=== PATIENT | female | born 1930 | race Caucasian/White ===

== ENCOUNTER 2016-09-25 07:30 | Inpatient (IN) | payer MEDICARE ==
--- NOTE | 2016-09-21 15:32 | HP ---
PREOPERATIVE HISTORY AND PHYSICAL: DATE OF SURGERY: 09/25/16 DATE OF OFFICE VISIT: 09/19/16 ATTENDING SURGEON: Dr. Goodrich (DICTATED BY JONATHON LANE) PROCEDURE: Left total hip replacement. CHIEF COMPLAINT: Left hip pain. HISTORY OF PRESENT ILLNESS: Lourdes is an 86-year-old female who presented to the clinic for left hip pain after mowing an incline and moving a washer on 01/06. After that time, she had difficulty walking for 3 days. She has had continued pain in her hip and groin region due to a left femoral neck fracture. She has failed conservative measures and has therefore agreed to undergo a left total hip replacement with Dr. Goodrich on 09/25/16. PAST MEDICAL HISTORY: 1. Lyme disease. 2. Chronic back pain. 3. Osteoarthritis. 4. Seasonal allergies. 5. Bladder cancer. PAST SURGICAL HISTORY: 1. Bladder suspension. 2. Bladder cancer resection. 3. Right total knee replacement. Denies prior complications with anesthesia. MEDICATIONS: 1. Zolpidem tartrate 5 mg 1 tab at bedtime as needed for sleep. 2. Cod liver oil with vitamins A and D 1 gel tab daily. 3. Probiotics Blend 1 by mouth everyday. 4. Nasacort AQ 55 mcg/HCT 2 sprays in each nostril everyday. 5. Betamethasone dipropionate 0.05% apply twice a day to area of itching. 6. Naproxen 400 mg p.o. daily. 7. Aspirin 325 mg take one by mouth everyday. 8. Lidocaine 5% apply to the painful areas as directed. 9. Fentanyl transdermal patch. ALLERGIES: PENICILLIN, SULFA, CEPHALOSPORIN, VALTREX, MORPHINE, DOXYCYCLINE, and QUETIAPINE. FAMILY HISTORY: Positive for stroke. Denies family history of DVT or PE. SOCIAL HISTORY: The patient lives alone. She is a former smoker. She quit 27 years ago. She denies alcohol or illegal drug use. REVIEW OF SYSTEMS: General: Negative for fever, chills, or night sweats. No known anesthesia problems. HEENT: Negative for headache, lightheadedness, or syncopal episodes. Integumentary: Negative for abrasions, lesions, or open wounds. Cardiothoracic: Negative for chest pain, palpitations, or edema. Negative for hypertension. Pulmonary: Negative for shortness of breath with exertion, chronic cough, or COPD. GI: Negative for nausea, vomiting, diarrhea , constipation, or GERD. : Positive for history of bladder cancer. Denies nocturia, urinary frequency, urinary urgency or kidney problems. Musculoskeletal: Positive for current complaint. Neuro: Denies numbness and tingling, history of seizure, stroke, or epilepsy. Endocrine: Negative for diabetes or thyroid issues. Heme: Negative for easy bruising, anemia, excessive bleeding, nor history of DVT or PE. Infectious Disease: Negative for history of MRSA. PHYSICAL EXAM: GENERAL: Well-developed, well-nourished 86-year-old female, in no acute distress. Alert and oriented x3. Appropriate mood and affect. VITAL SIGNS: Height 59, weight 117. Pulse 84, blood pressure 158/82, respiratory rate 18, temperature 97.5. BMI 23.6. HEENT: Normocephalic, atraumatic. PERRLA. Throat clear. NECK: Supple. PULMONARY: Lungs are clear to auscultation bilaterally. No wheezing, rhonchi, or rales. CARDIO: Regular rate and rhythm. S1, S2. No murmurs, gallops, or rubs. No edema. No carotid bruits. ABDOMEN: Positive bowel sounds. Soft, nontender. MUSCULOSKELETAL: Antalgic gait favoring the left side. Hip is nontender anteriorly. No masses. Mild tenderness to palpation over the lateral hip. Unable to perform a leg raise. Full range of motion of the knee, +2 dorsalis pedis and posterior tibialis pulse. Sensation intact to light touch distally. NEURO: Alert and oriented x3. Cranial nerves grossly intact. Sensation intact to light touch. DIAGNOSTIC STUDIES/LAB DATA: Multiple view x-rays of the left hip reveal a left femoral neck fracture that is displaced. IMPRESSION: Left femoral neck fracture. PLAN: The patient is scheduled to undergo a left total hip replacement with Dr. Goodrich on 09/25/16 for treatment of a left femoral neck fracture. Indications and risks and complications of the surgery were discussed with the patient. Percocet will be used for postoperative pain management and aspirin for DVT prophylaxis. She will follow up one month postop for followup and suture removal. JONATHON LANE [id number]/[facility] #: [id number] MTDDon
[~2016-09-25 07:30] MED LIST: Famotidine IV* 10 MG/ML 2 ML (20 mg) IV ONE; Metoclopramide TAB* 10 MG PO ONE
[2016-09-25] MEDS ORDERED: Propofol* 10 MG/ML 20 ML BTL IV PUSH ONE ×3 (11:44→12:02)
[2016-09-25] MEDS ORDERED: Bupivacaine 0.5% SDV PF* 30 ML VIAL ONE ×2 (11:50→12:03)
[2016-09-25] MEDS ORDERED: fentaNYL* 50 MCG/ML 2 ML VIAL (100 MCG VIAL) ONE (11:50)
[2016-09-25] MEDS ORDERED: Ondansetron INJ* 2 MG/ML VIAL ONE (11:50)
[2016-09-25] MEDS ORDERED: KETAMINE HCL* 50 MG/ML 10 ML VIAL ONE (11:50)
[2016-09-25] MEDS ORDERED: Midazolam* 1 MG/ML 5 ML VIAL (5 MG) ONE (11:50)
[2016-09-25] MEDS ORDERED: Lidocaine 2% PF * 5 ML VIAL ONE (11:50)
[2016-09-25] MEDS ORDERED: Dexamethasone IV* 4 MG/ML 1 ML (4 MG) ONE (11:50)
[2016-09-25] MEDS ORDERED: Ketorolac INJ* 30 MG/ML 1 ML VIAL ONE (11:50)
[2016-09-25] MEDS ORDERED: Phenylephrine INJ* 50 MG in NS 0.9% 250 ML* 245 ML IV PRN (12:32)
[2016-09-25] MEDS ORDERED: Ondansetron INJ* 2 MG/ML VIAL IV PRN ×2 (12:32→12:33)
[2016-09-25] MEDS ORDERED: fentaNYL* 50 MCG/ML 2 ML VIAL (100 MCG VIAL) IV PRN (12:32)
[2016-09-25] MEDS ORDERED: Naloxone* 0.4 MG/ML 1 ML VIAL IV PRN (12:33)
[2016-09-25] MEDS ORDERED: diPHENhydraMINE IV* 50 MG/ML 1 ml VIAL (BENADRYL) IV PRN (12:33)
[2016-09-25] MEDS ORDERED: EPHEDrine (Pressors)* 50 MG/ML VIAL IV PUSH PRN (12:33)
[2016-09-25] MEDS ORDERED: oxyCODONE/Acetamin 5/325 MG* TAB PO PRN (12:33)
[2016-09-25] MEDS ORDERED: Lactated Ringers 500 ml BAG* 500 ML IV PRN (12:33)
[2016-09-25] MEDS ORDERED: EPHEDrine (Pressors)* 50 MG/ML VIAL ONE (12:38)
[2016-09-25] MEDS ORDERED: HYDROmorphone* 1 MG/ML 1 ML SYR IV SLOW PU PRN (13:10)
[2016-09-25] MEDS ORDERED: oxyCODONE TAB* 5 MG TAB PO PRN (13:10)
[2016-09-25] MEDS ORDERED: Temazepam CAP* 15 MG PO PRN (13:10)
[2016-09-25] MEDS ORDERED: Zolpidem TAB* 5 MG PO PRN (13:21)
[2016-09-25] MEDS ORDERED: Senna TAB PO PRN (13:21)
--- NOTE | 2016-09-25 13:56 | RAD ---
Indication: Postop LEFT total hip replacement. Comparison: September 19, 2016 Technique: AP pelvis and proximal femurs 1233 hours Report: Noncemented LEFT total hip prosthesis in place with normal alignment in the AP projection with full alignment assessment requiring an orthogonal view. No periprosthetic fracture evident. Surrounding soft tissue swelling and subcutaneous emphysema. Overlying cutaneous saumya. Bilateral pelvic sidewall surgical clips. Lumbar sacral spine degenerative spondylosis and facet joint osteoarthritis. IMPRESSION: Unremarkable immediate postop appearance of the LEFT total hip prosthesis.
[2016-09-25] MEDS ORDERED: fentaNYL PATCH 12 MCG/HR TRANSDERM SCH (14:00)
--- NOTE | 2016-09-25 15:21 | CONS ---
CC: Dr. Alcaraz; Dr. Oshea; Dr. Hernandez; Dr. oGodrich * CONSULTATION REPORT: DATE OF CONSULT: 09/25/16 PRIMARY CARE PROVIDER: Dr. Alcaraz. CHIEF COMPLAINT: Status post left hip surgery. HISTORY OF PRESENT ILLNESS: Ms. Coronel is an 86-year-old female with history of left femoral neck fracture that was noted incidentally. The patient has had problems with back pain and hip pain, but she denies any trauma. She was diagnosed by Dr. Goodrich with left hip fracture and today is status post left total hip replacement. Dr. Goodrich requested medicine service to see this patient in evaluation of medical management of this postoperative patient. PAST MEDICAL HISTORY: 1. History of bladder cancer, status post partial bladder resection. 2. Right knee surgery in the past performed by Dr. Goodrich in 2011. 3. History of cardiac stress test noted in July 2016 which showed EF of 60% and low risk. 4. History of questionable hypertension, although never treated. 5. History of chronic back pain. 6. History of osteoarthritis. MEDICATIONS AT HOME: Include: 1. Fentanyl patch 12 mcg every 72 hours. 2. Benadryl 25 mg at bedtime p.r.n. 3. Ambien 5 mg at bedtime p.r.n. 4. Senna 2 tablets daily p.r.n. 5. Probiotic 1 tablet daily. 6. Naproxen sodium 440 mg daily p.r.n. 7. Multivitamin 1 tablet daily. 8. Aspirin 325 mg daily. ALLERGIES: Include SEROQUEL causes rapid heart rate and uncontrollable limb movements. IBUPROFEN and TRAMADOL cause stomach upset. CEPHALOSPORINS cause hives. DOXYCYCLINE, vomiting. LYRICA cause for the patient to be sedated. MORPHINE causes vomiting. PENICILLIN causes hives. SULFA DRUGS, VALTREX and LATEX are also on the list of the patient's allergies. FAMILY HISTORY: Positive for father with CVA. Mother with genital cancer. SOCIAL HISTORY: The patient lives alone. Her surrogates are her both sons. She smoked cigarettes in her 20s. She denies any alcohol or drug use. REVIEW OF SYSTEMS: The patient is currently under epidural anesthesia. She denies any pain. She in fact feels very well. She is on 4 L of oxygen postoperatively, but denies shortness of breath or chest pain. All the remaining 14 systems were reviewed with the patient and were otherwise negative. PHYSICAL EXAM: Blood pressure of 149/79, heart rate of 68 and regular, respiratory rate 16, oxygen saturation 100% on 2 L of oxygen nasal cannula, and temperature of 97.2. General: The patient is a very pleasant 86-year-old female who is in no acute distress. Alert, awake, and oriented x3. HEENT: Atraumatic, normocephalic. Eyes: Pupils equal, round, reactive to light and accommodation. Oropharynx clear. Mucosa moist. Neck: Supple. No JVD, no bruit bilaterally. Cardiovascular: Regular rate and rhythm with 2/6 systolic ejection murmur noted on auscultation of the right upper sternal border. Respiratory: Clear to auscultation bilaterally. Abdomen: Soft, nontender. Bowel sounds present in all 4 quadrants. Extremities: There is no edema. Pulses are +2 bilaterally. No clubbing or cyanosis. On evaluation of the skin , left postoperative hip was evaluated. The patient has the postoperative incision covered with dressings that were not removed. Neuro Evaluation: Speech clear. Cranial nerves II through XII grossly intact. Motor strength is 5/5 bilaterally. DIAGNOSTIC STUDIES/LAB DATA: Last obtained on 09/20/16 showed white blood cell count of 4.0, hemoglobin 12.6, hematocrit of 38, and platelets of 255. Sodium was 136, potassium 4.3, chloride 101, carbon dioxide 28, BUN 14, creatinine 0.74. Liver function tests were unremarkable at that point. ASSESSMENT AND PLAN: Ms. Coronel is an 86-year-old female with history of osteoarthritis who was noted incidentally that she has a fracture of the left femoral neck. Currently, she is status post left hip surgery performed by Dr. Goodrich. Apart from history of osteoarthritis and chronic pain, she has no other medical issues ongoing. I agree with following basic metabolic panel and hemoglobin and hematocrit postoperatively. I also agree with the pain management postoperatively. At this point, Medicine is going to sign off the patient's care and will be available p.r.n. TIME SPENT: Approximately 55 minutes was spent on consultation of this patient , more than half that time was spent [id number] with the patient doing the interview and physical exam. [id number]/[facility] #: [id number] [facility]
[2016-09-25] MEDS: OBEPIDURAL* 250 ML EPIDURAL SCH (15:54)
[2016-09-25] MEDS ORDERED: Ropivacaine (OR use only) 2 MG/ML 1 ML ONE (16:02)
[2016-09-25] MEDS ORDERED: fentaNYL PATCH 12 MCG/HR ONE (17:36)
[2016-09-25] MEDS: fentaNYL Patch Check Q Shift 1 NOTE SCH (19:12)
[2016-09-25] MEDS: Ferrous Sulfate TAB* 325 MG PO SCH (20:02)
[2016-09-25] MEDS: Docusate CAP* 100 MG PO SCH (20:02)
[2016-09-25] MEDS: Clindamycin 600 MG IVPREMIX(* 600 MG/50 ML SDV IV SCH (20:02)
[2016-09-25] MEDS: oxyCODONE/Acetamin 5/325 MG* TAB PO PRN (20:26)
--- NOTE | 2016-09-25 23:07 | OP ---
CC: Dr. Alcaraz* DATE OF OPERATION: 09/25/16 - ROOM #347 DATE OF : 34 SURGICAL CARE: Left hip. SURGEON: Dr. Salomon Goodrich. ASSISTANTS: JONATHON Ramirez, kindergarten instructional assistant; and JONATHON Chen Student. ANESTHESIOLOGIST: Dr. Carlito Roblero. ANESTHESIA: Spinal epidural. PRE-OP DIAGNOSIS: Displaced left femoral neck fracture. POST-OP DIAGNOSIS: Displaced left femoral neck fracture. OPERATIVE PROCEDURE: Left total hip replacement. COMPLICATIONS: There were no complications. DRAINS: There were no drains. ESTIMATED BLOOD LOSS: 200 mL. REPLACEMENT: Crystalloid fluid. OPERATIVE INDICATIONS: The displaced femoral neck fracture. DESCRIPTION OF PROCEDURE: The patient was brought to the operating room and placed on the operating table in a supine position following the administration of the anesthetic. She was returned to the supine position. A Garcias catheter was inserted. Then she was then placed in the right lateral position with an axillary roll in the down side, right leg checked to see if there was no pressure on the peroneal nerve at the fibular head and neck. The pelvis was secured over the ASIS and the sacrum with the hip positioner. The left groin was sealed off. The left hip was given a preliminary chlorhexidine prep and then a formal ChloraPrep from the hip to the foot. After prepping, draping and sealing off, we did our universal protocol time-out confirming Lourdes Coronel and plan for left total hip replacement. We all agreed and we proceeded out. The skin incision went from the greater trochanter distally for an inch and a half and curved proximally and posteriorly for 2.5 to 3 inches. The skin and subcu divided down to the deep fascia. Hemostasis was checked and achieved throughout the case utilizing electrocautery. Charnley retractor was inserted. The trochanteric bursa was traversed. A careful posterior approach to the hip was done preserving the gluteus medius and minimus. The piriforms and conjoint tendon were released from the piriformis fossa insertions. Each was marked with a separate #2 Surgidac suture and this stitch also included the underlying capsular flap. Careful hemostasis was achieved during this posterior approach. The femoral head could be seen on centimeter medially displaced with a stepoff on the medial aspect of the neck and the subcapital region. The hip was dislocated without difficulty. The neck was marked with the cutting guide for the M/L taper and the head and neck then carefully removed. The neck was divided about a half a fingerbreadth proximal to the lesser trochanter. The acetabulum was in good condition. The retraction there was sharp, Hohmann anteriorly and posteriorly, blunt Hohmann superiorly and inferiorly. The remainder of the labrum removed posteriorly and superiorly. The soft tissues in the medial acetabulum were excised and reaming was done 44 through 48. At 48, we had nice bleeding subchondral and cancellous bone. A 48 cluster hole Continuum cup was impacted into position in 45 degrees of abduction and 20 degrees of anteversion with nice tight fit. The acetabulum was cleaned with saline. A screw was placed superiorly and then an elevated liner was placed posteriorly. On the femoral side, we used a canal finder at the box. The trochanteric reamer broaching was done 5 through 11. The 11 broach was utilized for a trial reduction with a -3/5 32 mm head and this had a nice fit and negative push, pull in extension. No tendency towards levering with IR and ER in extension. Flexion of 90 degrees , allowed adduction and internal rotation approaching 30 to 40 degrees prior to dislocation. A size 11 standard M/L taper stem was impacted into position in 15 to 20 degrees of anteversion. The trunnion was cleaned and a -3/5 32 mm cobalt chrome head was impacted into position. The hip was reduced carefully. Hemostasis checked and achieved utilizing electrocautery during closure. We irrigated several times with saline. The piriformis and conjoint tendon reapproximated through 2 drill holes for the posterior superior greater trochanter. Fascia fortino closed with interrupted #1 Polysorb in figure-of-8 fashion and same of the fascia of the gluteus alxe where we used 0 Polysorb sutures. On the deep and superficial subcu, we used 0 Polysorb and then 2-0 Polysorb and then saumya on the skin. I did not think drains were necessary. The skin was washed and dried and covered with Betadine soaked release followed by sterile gauze, may be knee pattern and paper tape. The patient was returned to the hospital bed into brought into the recovery room in stable and satisfactory condition having tolerated the procedure very well. [id number]/[facility] #: [id number] [facility]
[2016-09-26] MEDS: oxyCODONE/Acetamin 5/325 MG* TAB PO PRN ×2 (00:26→05:16)
[2016-09-26] MEDS: Clindamycin 600 MG IVPREMIX(* 600 MG/50 ML SDV IV SCH ×2 (03:53→12:12)
[2016-09-26] MEDS ORDERED: Ondansetron INJ* 2 MG/ML VIAL IV PRN (06:00)
[2016-09-26] MEDS ORDERED: Naloxone* 0.4 MG/ML 1 ML VIAL IV PRN (06:00)
[2016-09-26] MEDS ORDERED: diPHENhydraMINE IV* 50 MG/ML 1 ml VIAL (BENADRYL) IV PRN (06:00)
[2016-09-26] MEDS ORDERED: oxyCODONE/Acetamin 5/325 MG* TAB PO PRN ×2 (06:00)
[2016-09-26 06:32] LABS: Hematocrit 26 % (35-47); Hemoglobin 8.8 g/dl (12.0-16.0)
[2016-09-26] MEDS: fentaNYL Patch Check Q Shift 1 NOTE SCH ×2 (06:32→18:53)
[2016-09-26 06:50] LABS: Calcium 8.9 mg/dL (8.6-10.3); EGFR African American 113.7 (>60); EGFR Non-African American 88.4 (>60); Potassium 4.1 mmol/L (3.5-5.0)
[2016-09-26] MEDS: Docusate CAP* 100 MG PO SCH ×2 (08:08→21:01)
[2016-09-26] MEDS: Ferrous Sulfate TAB* 325 MG PO SCH ×2 (08:08→21:00)
[2016-09-26] MEDS: Aspirin TAB* 325 MG PO SCH (08:08)
[2016-09-26] MEDS: Vitamin THERAPEUTIC TAB PO SCH (08:09)
[2016-09-26] MEDS: Acetaminophen TAB* 325 MG PO PRN ×3 (12:32→21:01)
[2016-09-26] MEDS: OBEPIDURAL* 250 ML EPIDURAL SCH (12:56)
[2016-09-27] MEDS: Acetaminophen TAB* 325 MG PO PRN ×2 (03:19→09:02)
[2016-09-27] MEDS: fentaNYL Patch Check Q Shift 1 NOTE SCH (06:38)
[2016-09-27 07:36] LABS: Hematocrit 31 % (35-47); Hemoglobin 10.8 g/dl (12.0-16.0)
[2016-09-27] MEDS: Ferrous Sulfate TAB* 325 MG PO SCH (09:02)
[2016-09-27] MEDS: Docusate CAP* 100 MG PO SCH (09:02)
[2016-09-27] MEDS: Vitamin THERAPEUTIC TAB PO SCH (09:02)
[2016-09-27] MEDS: Aspirin TAB* 325 MG PO SCH (09:02)
--- NOTE | 2016-09-27 09:09 | PN ---
Progress Note - Progress Note SOAP: Subjective: []Patient seen OOB in chair, fully dressed and ready to go home. Doing well, minimal pain. Denies nausea, dizziness, SOB, CP. Objective: [] Vital Signs Temp 98.1 F 09/27/16 07:28 Pulse 80 09/27/16 07:28 Resp 16 09/27/16 08:00 BP 143/56 09/27/16 07:28 Pulse Ox 100 09/27/16 08:00 Intake & Output 09/26/16 09/27/16 09/27/16 18:59 06:59 18:59 Intake Total 821 720 200 Output Total 550 1400 300 Balance 271 -680 -100 Intake: IV Fluids 221 0 ABX - CLINDAMYCIN 0 LR 221 0 IVPB 60 ABX - CLINDAMYCIN 60 Oral 225 720 200 Packed Cells 315 Output: Urine 250 1400 300 Garcias 300 Other: # Bowel Movements 0 # Voids 2 Laboratory Results - last 24 hr 09/26/16 09/27/16 05:38 06:34 Hgb 10.8 L Hct 31 L Blood Type O Positive Antibody Screen Negative Crossmatch See Detail Left hip dressing taken down, moderate old bloody drainage, no active bleeding, incision benign moderate ecchymosis posterior to incision calf non tender and soft +DF/PF neuro intact Assessment: []s/p Left total hip arthroplasty POD #2 Plan: []Continue Ecotrin 325 mg po daily Tylenol for pain at home Follow up in 4-[address] Goodrich
[2016-09-27 11:40] VITALS: BP 153/68
[2016-09-27] MEDS: OBEPIDURAL* 250 ML EPIDURAL SCH (12:02)
--- NOTE | 2016-09-28 00:34 | DS ---
DISCHARGE SUMMARY: DATE OF ADMISSION: 09/25/16 DATE OF DISCHARGE: 09/27/16 ATTENDING PHYSICIAN: Dr. Salomon Goodrich. (DICTATED BY JONATHON PEREIRA) ADMISSION DIAGNOSIS: Left displaced femoral neck fracture. DISCHARGE DIAGNOSIS: Left displaced femoral neck fracture. SURGERY PERFORMED: Left total hip arthroplasty. HOSPITAL COURSE: The patient is an 86-year-old female, who injured her left hip after mowing her grass on an incline and subsequently moving a washing machine on 08/28/16. After these 2 episodes, she had increased pain and difficulty bearing weight for roughly 3 days. She presented to the office where x-rays revealed a femoral neck fracture. It was recommended that she undergo total hip replacement as she failed conservative management. She elected to proceed and was taken to the operating room under the care of Dr. Salomon Goodrich on the date of 09/25/16 for the aforementioned procedure. She tolerated the procedure well and left the operating room in stable condition. Postoperatively, on day 1, her hematocrit was 26, her hemoglobin 8.8. She was transfused with a unit of packed red blood cells and her hemoglobin and hematocrit rebounded to 10.8 and 31. She had no difficulty postoperatively otherwise. She progressed exceptionally well with her physical therapy and occupational therapy goals bearing weight as tolerated on the left lower extremity. It was felt that she was orthopedically and medically stable for discharge to home on 09/27/16. The patient was considered for rehab, but the patient refused rehab and elected to be discharged home. CONDITION ON DISCHARGE: She is afebrile. Her vital signs are stable. Her left hip dressing was changed. Moderate old bloody drainage noted on her dressings. Soapy water cleansing with application of iodine-soaked Telfa, 4x4s, and tape was applied to the left hip wound today. Her calf is soft and nontender. She has active dorsiflexion and plantar flexion of her left foot. Her sensation and circulation are intact distally. PLAN: Discharge to home, bearing weight as tolerated in the left lower extremity. She will keep a light dressing with antibiotic ointment on her left hip. She will continue with aspirin 325 mg p.o. daily for DVT prophylaxis. She wears a fentanyl patch 12 mcg q.72 hours for her chronic back pain, and does not want to take additional narcotic pain medications. She was instructed to take Extra Strength Tylenol as needed in addition to her Duragesic patch. I recommend she refrain from the Naprosyn while she is on the aspirin to prevent GI complication. She understands. We recommend a followup with Dr. Goodrich in the office in roughly 4 to 6 weeks. She will have visiting home nurse services check her incision and remove her saumya in roughly 10 to 12 days. If she has any problems with increased hip pain, swelling, drainage, calf pain or swelling , shortness of breath, chest pain, excessive constipation, the office will be contacted prior to her scheduled followup with Dr. Goodrich. JONATHON PEREIRA [id number]/[facility] #: [id number] MTDDon
== END 2016-09-27 13:15 | disposition home health service (06) | DRG 470 ==
LOC: AA 07:48 → SSU 13:10
PROVIDERS: ADMIT Orthopaedic Surgery; ATTEND Orthopaedic Surgery
PROC: 0SRB02Z Replacement of Left Hip Joint with Metal on Polyethylene Synthetic Substitute, Open Approach (ICD-10-PCS; 2016-09-25)
PROC: 30233N1 Transfusion of Nonautologous Red Blood Cells into Peripheral Vein, Percutaneous Approach (ICD-10-PCS; principal; 2016-09-25 09:30)
DX: S72.002A Fracture of unspecified part of neck of left femur, initial encounter for closed fracture (principal); I10 Essential (primary) hypertension; D62 Acute posthemorrhagic anemia; G89.29 Other chronic pain; M54.9 Dorsalgia, unspecified; Z85.51 Personal history of malignant neoplasm of bladder; M47.892 Other spondylosis, cervical region; Z96.651 Presence of right artificial knee joint; Z98.42 Cataract extraction status, left eye; Z98.41 Cataract extraction status, right eye; Z88.8 Allergy status to other drugs, medicaments and biological substances; Z88.1 Allergy status to other antibiotic agents; Z88.0 Allergy status to penicillin; Z88.2 Allergy status to sulfonamides; Z88.5 Allergy status to narcotic agent; M19.90 Unspecified osteoarthritis, unspecified site; Z80.49 Family history of malignant neoplasm of other genital organs; Z82.3 Family history of stroke; Z87.891 Personal history of nicotine dependence; W30.1XXA Contact with power take-off devices (PTO), initial encounter; Y93.H2 Activity, gardening and landscaping; Y92.9 Unspecified place or not applicable
CPT/HCPCS: 36415; 72170; 80048; 85014; 85018; 86850; 86900; 86901; 86922; A9270-GY; C1713; C1776; J1100; J1885; J2250; J2405; J2704; J2795; J3010; P9040

== ENCOUNTER 2019-07-31 19:40 | Emergency (ER) | payer MEDICARE ==
[2019-07-31] MEDS ORDERED: NS 0.9% 1000 ML** 1,000 ML IV ONE (20:03)
[2019-07-31] MEDS ORDERED: Ondansetron INJ* 2 MG/ML VIAL IV ONE (20:03)
--- NOTE | 2019-07-31 20:05 | ED ---
Abdominal Pain/Female - HPI Summary HPI Summary: Patient complains of chronic low back pain and no one said diffuse abdominal pain and lack of bowel movement 5 days. Abdominal pain described as progressive, constant, well-nourished 11/29, currently 09/29. Tolerating fluids, but nausea and vomiting with eating. Patient has attempted suppositories daily and mag citrate today for constipation with no relief. Denies fever, cough, sore throat, CP, SOB, diarrhea, change in urine, vaginal symptoms. Medical history is diverticulitis. Abdominal surgical history is none. - History of Current Complaint Chief Complaint: EDAbdPain Stated Complaint: ABDOMINAL KIRTI PER EMT Time Seen by Provider: 07/31/19 19:52 Hx Obtained From: Patient Onset/Duration: Gradual Onset, Lasting Days Timing: Constant Severity Currently: Moderate Pain Intensity: 6 Pain Scale Used: 0-10 Numeric Location: Diffuse Radiates to: Back Character: Dull Aggravating Factor(s): Food Associated Signs and Symptoms: Positive: Back Pain, Constipation, Nausea, Vomiting Allergies/Adverse Reactions: Allergies Allergy/AdvReac Type Severity Reaction Status Date / Time Cephalosporins Allergy Hives Verified 07/31/19 19:49 doxycycline Allergy Vomiting Verified 07/31/19 19:49 fentanyl Allergy Itching Verified 07/31/19 19:49 ibuprofen Allergy Unknown Verified 07/31/19 19:49 Reaction Details morphine Allergy Itching Verified 07/31/19 19:49 Penicillins Allergy Hives Verified 07/31/19 19:49 quetiapine [From Seroquel] Allergy Tachycardia Verified 07/31/19 19:49 Sulfa (Sulfonamide Allergy Rash Verified 07/31/19 19:49 Antibiotics) tramadol Allergy increased Verified 07/31/19 19:49 BP valacyclovir [From Valtrex] Allergy Rash Verified 07/31/19 19:49 LATEX Allergy See Comment Uncoded 07/31/19 19:49 Home Medications: Home Medications Lactobacillus Acidophilus/Fos [Acidophilus Probiotic Tablet] 1 tab PO DAILY [History Confirmed 07/31/19] Zolpidem TAB* [Ambien*] 10 mg PO BEDTIME PRN 02/15/16 [History Confirmed ] Acetaminophen TAB* [Tylenol TAB*] 650 mg PO Q4H PRN #0 tab 09/27/16 [Rx Confirmed 07/31/19] oxyCODONE TAB* [Roxycodone TAB 5 mg*] 5 mg PO BID PRN 12/10/16 [History Confirmed 07/31/19] Multivit-Min/Iron Fum/Folic AC [Cblhw-Fsnpdpy-Jmuvvhyz Tablet] 1 each PO .TWICE WEEKLY 06/20/17 [History Confirmed 07/31/19] Naproxen Sodium [Naproxen 220 mg] 220 mg PO BID PRN 08/16/17 [History Confirmed 07/31/19] Losartan TAB* [Cozaar TAB*] 25 mg PO DAILY 11/04/17 [History Confirmed 07/31/19] Pregabalin 100 mg CAP (*) [Lyrica CAP(*)] 100 mg PO BID 11/04/18 [History Confirmed 07/31/19] fentaNYL PATCH 12 MCG/HR * [Duragesic Patch 12 Mcg/Hr *] 12 mcg TRANSDERM Q72H 06/15/19 [History Confirmed 07/31/19] PMH/Surg Hx/FS Hx/Imm Hx Endocrine/Hematology History: Denies: Hx Diabetes, Hx Systemic Lupus Erythematosus Cardiovascular History: Reports: Hx Hypertension, Hx Rheumatic Fever - A CHILD AGE APPROX 12 OR 14, Other Cardiovascular Problems/Disorders - LLE lymphedema Denies: Hx Congestive Heart Failure, Hx Pacemaker/ICD Respiratory History: Reports: Hx Seasonal Allergies Denies: Hx Chronic Obstructive Pulmonary Disease (COPD) GI History: Reports: Hx Gastrointestinal Bleed, Other GI Disorders - CONSTIPATION R/T PAIN MEDS History: Reports: Hx Kidney Infection - HX OF, Other Problems/Disorders - bladder cancer August 2010 Denies: Hx Dialysis, Hx Renal Disease Musculoskeletal History: Reports: Hx Arthritis, Hx Back Problems, Hx Scoliosis, Hx Tendonitis, Other Musculoskeletal History - arthritis Denies: Hx Rheumatoid Arthritis Sensory History: Reports: Hx Cataracts - BILAT, Hx Contacts or Glasses Denies: Hx Hearing Aid Opthamlomology History: Reports: Hx Cataracts - BILAT, Hx Contacts or Glasses Neurological History: Reports: Hx Nerve Disease - R/T FRACTURES IN BACK, Other Neuro Impairments/Disorders - PAIN CLINIC PT. Psychiatric History: Denies: Hx Panic Disorder - Cancer History Cancer Type, Location and Year: BLADDER CANCER- PARTIAL REMOVAL Hx Chemotherapy: No Hx Radiation Therapy: No - Surgical History Surgery Procedure, Year, and Place: BLADDER CA- (1/2 BLADDER REMOVED)Partial cystectomy OCTOBER 2010;UTERINE SUSPENSION & INCIDENTAL APPENDECTOMY- 1962; TENO- SYNOVIOTIS- Rt WRIST - 1969; SINUS 1982; Rt FOOT -BUNIONECTOMY W/FUSION OF JOINT - 1990; 1998 SINUS REMOVAL ETHMOID SINUS; 2000 TOTAL Rt KNEE REPLACEMENT; 2000 Lt FOOT BUNION; Lt WRIST- GANGLION CYST 2002;CATARACT 2011. September 2016 - left hip replacement, [facility] Hx Anesthesia Reactions: No Infectious Disease History: No Infectious Disease History: Denies: History Other Infectious Disease, Traveled Outside the [place] in Last 30 Days - Family History Known Family History: Positive: Hypertension - Social History Alcohol Use: None Alcohol Amount: 1 glass wine/6mo. Substance Use Type: Reports: None Substance Use Comment - Amount & Last Used: FENTANYL PATCH FOR PAIN MANAGEMENT Smoking Status (MU): Former Smoker Type: Cigarettes Have You Smoked in the Last Year: No Review of Systems Constitutional: Negative Eyes: Negative ENT: Negative Cardiovascular: Negative Respiratory: Negative Positive: Abdominal Pain, Vomiting, Nausea Genitourinary: Negative Musculoskeletal: Negative Skin: Negative Neurological/Mental Status: Negative Psychological: Normal All Other Systems Reviewed And Are Negative: Yes Physical Exam - Summary Physical Exam Summary: Pain in left upper and lower quadrants with palpation. Abdominal exam otherwise unremarkable. Triage Information Reviewed: Yes Vital Signs On Initial Exam: Initial Vitals Temp Pulse Resp BP Pulse Ox 98.8 F 100 16 190/98 97 07/31/19 19:40 07/31/19 19:40 07/31/19 19:40 07/31/19 19:40 07/31/19 19:40 Vital Signs Reviewed: Yes Appearance: Positive: Well-Appearing Skin: Positive: Warm Head/Face: Positive: Normal Head/Face Inspection Eyes: Positive: Normal ENT: Positive: Normal ENT inspection Neck: Positive: Supple Respiratory/Lung Sounds: Positive: Clear to Auscultation Cardiovascular: Positive: Normal Abdomen Description: Positive: Other: Musculoskeletal: Positive: Normal Neurological: Positive: Normal Psychiatric: Positive: Normal AVPU Assessment: Alert - [place] Coma Scale Best Eye Response: 4 - Spontaneous Best Motor Response: 6 - Obeys Commands Best Verbal Response: 5 - Oriented Coma Scale Total: 15 Procedures - Sedation Patient Received Moderate/Deep Sedation with Procedure: No Diagnostics - Vital Signs Vital Signs Temp Pulse Resp BP Pulse Ox 07/31/19 19:51 102 23 210/105 97 07/31/19 19:50 16 07/31/19 19:40 98.8 F 100 16 190/98 97 - Laboratory Result Diagrams: 07/31/19 20:23 07/31/19 20:23 Lab Statement: Any lab studies that have been ordered have been reviewed, and results considered in the medical decision making process. Abdominal Pain Fem Course/Dx - Course Course Of Treatment: Patient complains of chronic low back pain and no one said diffuse abdominal pain and lack of bowel movement 5 days. Abdominal pain described as progressive, constant, well-nourished 11/29, currently 6/10. Tolerating fluids, but nausea and vomiting with eating. Patient has attempted MiraLAX and suppositories daily with no relief. Patient states today she took mag citrate, but immediately vomited it up. Denies fever, cough, sore throat, CP , SOB, diarrhea, change in urine, vaginal symptoms. Medical history is diverticulitis. Abdominal surgical history is none. Vital signs within normal limits. CRP 50. Alkaline phosphatase 116. BUN/creatinine ratio 32. 1 L normal saline administered. CT abdomen and pelvis negative for bowel obstruction, positive for significant stool. Patient recieved soap suds enema and was finally productive after multiple attempts. Patient blood pressure persistently elevated around SBP 200. Manual BP 191/103 at 2215. Patient given her nightly losartan 25 mg by mouth with no change in BP. Repeat manual BP 200/110 at 00:15. BP may be related to patient's chronic back pain and abdominal discomfort from constipation however unable to resolve constipation here in the ED. Discussed patient with attending Dr. Salas who agreed BP should be treated with further medication. Patient given hydralazine 5 mg IV. BP on discharge 162/82. - Diagnoses Provider Diagnoses: Abdominal pain, Constipation, Hypertension Discharge ED - Sign-Out/Discharge Documenting (check all that apply): Patient Departure - Discharge Plan Condition: Stable Disposition: HOME Patient Education Materials: Constipation (ED) Referrals: Robb Alcaraz MD [Primary Care Provider] - Additional Instructions: Follow-up with primary care for further evaluation of elevated blood pressure. Take Zofran 4 mg tablet under the tongue. 20 minutes later take 150 mL mag citrate. Return to the ED for any new or worsening symptoms. - Billing Disposition and Condition Condition: STABLE Disposition: Home
[2019-07-31 20:24] LABS: Urine Appearance Clear; Urine Bilirubin Negative (Negative); Urine Blood Negative (Negative); Urine Color Yellow; Urine Glucose Negative (Negative); Urine Ketones 1+ (Negative); Urine Nitrite Negative (Negative); Urine Protein 1+(30 mg/dL) (Negative); Urine Specific Gravity 1.012 (1.010-1.030); Urine Urobilinogen Negative (Negative)
[2019-07-31 20:27] LABS: Urine Bacteria Absent (Absent); Urine Red Blood Cell Absent (Absent); Urine Squamous Epithelial Cell Present (Absent); Urine White Blood Cell Absent (Absent)
[2019-07-31 20:33] LABS: ABS Eosinophils 0.1 10^3/ul (0-0.6); ABS Lymphocytes 0.5 10^3/ul (1.0-4.8); ABS Monocytes 0.4 10^3/ul (0-0.8); ABS Neutrophils 5.2 10^3/ul (1.5-7.7); Eosinophil % 2.1 %; Hematocrit 38 % (35-47); Hemoglobin 13.2 g/dL (12.0-16.0); Lymphocyte % 7.6 %; Mean Corpuscular HGB Conc 35 g/dL (31-36); Mean Corpuscular Hemoglobin 31 pg (27-31); Mean Corpuscular Volume 87 fL (80-97); Mean Platelet Volume 8.3 fL (7.4-10.4); Platelet Count 255 10^3/uL (150-450); Red Cell Distribution Width 14 % (10-15); White Blood Count 6.3 10^3/uL (3.5-10.8)
--- OUTSIDE RECORDS SUMMARY | 2019-07-31 20:34 | XMS REPORT | Continuity of Care Document ---
:1930 External Reference #:[id number] Author Name SOULEYMANE Chavarria Address [address] [place] [address] Care Team Providers Name Role Phone [facility] - Interventional Pain Care Team Information Photographic Equipment Assembler [phone] Medicine Alberto Desir - Urology Care Team Information Photographic Equipment Assembler [phone] Ahsan Villagomez MD - Infectious Care Team Information Photographic Equipment Assembler Disease Problems Active Problems Provider Date Urinary tract infectious disease Robb Alcaraz M.D. Onset: 03/27/2011 Acute sinusitis Robb Alcaraz M.D. Onset: 03/27/2011 Multiple joint pain Robb Alcaraz M.D. Onset: 03/27/2011 Cataract Robb Alcaraz M.D. Onset: 05/01/2011 Left lower quadrant pain Robb Alcaraz M.D. Onset: 01/09/2012 Backache Robb Alcaraz M.D. Onset: 11/12/2012 Nonvenomous insect bite of trunk with Robb Alcaraz M.D. Onset: 2013 infection Eruption Robb Alcaraz M.D. Onset: 03/25/2014 Non-suppurative otitis media Robb Alcaraz M.D. Onset: 11/22/2014 Referred otalgia Robb Alcaraz M.D. Onset: 12/13/2014 Weight decreased Robb Alcaraz M.D. Onset: 01/14/2015 Acute maxillary sinusitis Robb Alcaraz M.D. Onset: 05/17/2015 Epistaxis Robb Alcaraz M.D. Onset: 05/17/2015 Essential hypertension Robb Alcaraz M.D. Onset: 08/24/2016 Arthralgia of the pelvic region and thigh Robb Alcaraz M.D. Onset: Social History Type Date Description Comments Sex Unknown Tobacco Use Start: Unknown End: Unknown Patient is a former smoker Smoking Status Reviewed: 07/15/19 Patient is a former smoker Allergies, Adverse Reactions, Alerts Active Allergies Reaction Severity Comments Date Sulfa Drugs Penicillin Keflex Acyclovir rash all over 03/01/2010 Doxycycline Nausea and Vomiting 06/27/2010 Morphine 05/01/2011 Ceftizoxime 12/01/2014 Seroquel rapid heart rate 01/24/2015 Tramadol bp high 09/20/2017 Inactive Allergies Gabapentin diarrhea 11/10/2009 Medications Active Medications SIG Qnty Indications Ordering Date Provider Medrol dose-pack as 1pack Pat 07/15/2019 4mg Tablets instructed SOULEYMANE Toledo Ciprofloxacin HCL take one by mouth 14tabs R35.0 Ofelia CGerardo 06/19/2019 twice daily for 7 Kishore, CHEMICAL PRODUCTION ENGINEER 500mg Tablets days Fentanyl apply one patch 10units Robb Cifuentes 05/20/2019 12mcg/HR to skin of upper Vic Alcaraz Patches 72HR arm, shoulder every 3 days Lyrica use 1 twice a day 60caps Robb Cifuentes 04/17/2019 50mg Capsules mdd 2 Vic Alcaraz Amitriptyline HCL take one tablet 30tabs Robb Cifuentes 03/05/2019 by mouth at Vic Alcaraz 25mg Tablets bedtime Oxycodone HCL take 1 every 12 60tabs Robb Cifuentes 12/23/2018 5mg hours as needed Vic Alcaraz Tablets for low back pain with left sciatic Voltaren apply 2gms to 100units Robb Cifuentes 01/19/2017 1% Gel painful area Vic Alcaraz three times a day Ambien 1 by mouth every 30tabs Robb Cifuentes 09/27/2015 10mg Tablets at bedtime as Vic Alcaraz needed mail to patient Flunisolide 1-2 sprays each 25ml Sunil T. Midura, 06/04/2015 25mcg/Act nostril every day Vic (0.025%) Solution as needed Betamethasone apply sparingly 60gm Robb Cifuentes 12/19/2010 Dipropionate twice a day as Vic Alcaraz 0.05% needed Cream Tylenol Extra 1 po qid Unknown Strength 500mg Tablets Naproxen Sodium 2 po qam Unknown 220mg Tablets Aspirin 1 by mouth two Unknown 81mg Chewtabs times a day Magnesium one a day Unknown 200mg Chewtabs Losartan Potassium 1 every day 30tabs Robb Cifuentes Vic Alcaraz 25mg Tablets History Medications Medrol use as directed 1units Robb Alcaraz, 05/14/2019 - 4mg TBPK M.DGerardo 06/19/2019 Cipro 1 by mouth twice 10tabs R35.0 La Diana 02/09/2019 - 500mg a day Tamayo, CHEMICAL PRODUCTION ENGINEER 02/16/2019 Tablets Cipro 1 by mouth twice 10tabs R35.0 La Diana 02/06/2019 - 250mg a day Tamayo, CHEMICAL PRODUCTION ENGINEER 02/09/2019 Tablets Macrobid use twice a day 10caps Pat Tol[place], 01/22/2019 - 100mg TRAVEL OT 02/06/2019 Capsules Medications Administered in Office Medication SIG Qnty Indications Ordering Provider Date Injection Subcutaneous Or Robb Alcaraz M.D. 09/23/2007 Intramuscular Injection Immunizations CPT Code Status Date Vaccine Lot # [id number] Given 02/01/2019 Influenza Vac, Quadriv[place], [place] [id number] Given 01/29/2018 Pneumococcal Conjugate Vacc-13 [id number] Given 01/24/2018 Influenza Vac, Quadrivalent, Slit Virus, Im Vital Signs Date Vital Result Comment 07/15/2019 3:05pm BP Systolic 110 mmHg BP Diastolic 88 mmHg Heart Rate 78 /min Body Temperature 97.3 F Respiratory Rate 15 /min O2 % BldC Oximetry 98 % 07/08/2019 3:41pm BP Systolic 154 mmHg BP Diastolic 106 mmHg Heart Rate 82 /min Body Temperature 98.6 F O2 % BldC Oximetry 97 % Results Test Acquired Date Facility Test Result H/L Range Note Laboratory test 07/13/2019 [facility] Covid19, PCR Undetected 1 finding Flu A&B (a) 07/08/2019 [facility] medicine Influenza A negative (607)- - Influenza B negative Ua - Micro (a) 06/19/2019 [facility] Appearance clear (607)- - Color yellow Glucose, Urine (Fma/CMC/CTX) neg Bilirubin neg Ketones neg SP Grav 1.015 Blood neg PH 7.0 Protein neg Urobil 0.2 Nitrite neg Leukocytes (Fma/CMC/Centrex) neg Hyaline - /Lpf Granular - /Lpf WBC (Fma,Centrex) - RBC - Mucus (Fma/CBC/Centrex) - /Lpf Epith - /Lpf Bacteria - /Hpf Amorphous (Fma/CMC/Centrex) - /Lpf Crystals, Fluid (Fma/CMC/CTX) - Z#Comments - Urine Culture And 06/19/2019 [facility] Urine Culture SEE RESULT 2 Sensitivities BELOW Xray 05/25/2019 [facility] <pending> [facility] Minimum 4 Views [phone] Hip Complete Min 2 Views LT <pending> Basic Metabolic Profile 03/04/2019 [facility](a) Sodium 136 mEq/L 134-149 Potassium 4.4 mEq/L 3.6-5.5 Chloride 103 mEq/L 94-112 Carbon Dioxide 28 mEq/L 21-32 Glucose 107 mg/dL High 70-105 3 BUN 26 mg/dL 6-26 Creatinine 0.7 mg/dL 0.6-1.4 BUN/Creat Ratio 37.1 CALC High 8.0-36.0 Calcium 10.1 mg/dL 8.6-10.2 GFR Non- >60 ml/min/1.73m^ >=60 GFR >60 ml/min/1.73m^ >=60 Laboratory test 03/04/2019 [facility](a) Magnesium, Serum 2.1 mEq/L 1.2-2.1 finding TSH 2.62 mIU/L 0.50-6.00 CBC Electronic (Fma New) 03/04/2019 [facility] WBC 5.33 4.0-10.0 (607)- - RBC 4.27 3.93-6.0 Hemoglobin (Fma/CMC/CTX) 12.5 g/dL 12.0-17.0 Hematocrit (Fma/CMC/CTX) 38.5 % 35.0-50.0 Mean Corpuscular Vol 90.2 fL 80-95 Mean Corpuscular Hemoglobin 29.3 pg 25.6-32.2 Mean Corpuscular Hemo Concen 32.5 g/dL 32.2-36.0 Platelets 219 10^3/ul 163-400 RDW-CV 13.4 11.6-14.4 Mean Platelet Volume 10.2 fL 8.0-12.4 Absolute Neutrophils BLD 3.42 1.56-6.13 Absolute Lymphocytes 1.29 1.18-3.74 Absolute Monocytes BLD Auto 0.41 0.24-0.82 Absolute Eos Blood 0.17 0.04-0.54 Absolute Basophils 0.04 0.01-0.08 Neutrophil % 64.1 % 34.0-70.0 Lymph% 24.2 % 20.0-52.0 Monocytes % 7.7 % 5.0-12.0 Eos % 3.2 % 0.7-7.0 Basophil% 0.8 % 0-1.2 Urine Culture And 02/06/2019 [facility] Urine Culture SEE RESULT 4 Sensitivities BELOW Ua - Micro (a) 02/06/2019 [facility] Appearance good (607)- - Color clear Glucose, Urine (Fma/CMC/CTX) neg Bilirubin neg Ketones neg SP Grav 1.015 Blood neg PH 5.0 Protein neg Urobil 0.2 Nitrite neg Leukocytes (Fma/CMC/Centrex) neg Hyaline - /Lpf Granular - /Lpf WBC (Fma,Centrex) 0-1 RBC 0-1 Mucus (Fma/CBC/Centrex) - /Lpf Epith occ /Lpf Bacteria trace /Hpf Amorphous (Fma/CMC/Centrex) - /Lpf Crystals, Fluid (Fma/CMC/CTX) - Z#Comments - 1 Reference Range: Undetected SARS-CoV-2 RNA is not detected. ADDITIONAL INFORMATION Testing was performed using the anne SARS-CoV-2 assay ([employer] on the anne [employer] System. Fact sheets for this Emergency Use Authorization (EUA) assay can be found at the following links: For Healthcare Providers: https://www.fda.gov/media/857984/download For Patients: https://www.fda.gov/media/244231/download Test Performed by: [facility] [address] [place] [address] Transport Aide: Junior Redmond M.D. Ph.D.; CLIA# [id number] 2 SEE RESULT BELOW Name: LOURDES CORONEL : [address]: Ofelia Novak CHEMICAL PRODUCTION ENGINEER Acct: [id number] Unit: [id number] AGE: 88 Location: [facility] Re06/19/19 SEX: F Status: REG REF SPEC: [id number] CORY: 06/19/19-[address] [facility] [address]: Ofelia Novak CHEMICAL PRODUCTION ENGINEER REQ: [id number] RECD: 06/19/19 STATUS: COMP _ SOURCE: URINE [facility]: ORDERED: Urine Culture COMMENTS: [id number] Urine Source: Random Procedure Result Reported Site Urine Culture Final 06/20/19- 1529 ML No growth of clinically significant organisms * ML - Main Lab . END OF REPORT DEPARTMENT OF PATHOLOGY, [address] [place] [address] Dayton Bauer M.D. Director [facility] # [id number] 3 NON-FASTING 4 SEE RESULT BELOW Name: LOURDES CORONEL : [address]: La Tamayo NP Acct: [id number] Unit: [id number] AGE: 88 Location: [facility] Re02/06/19 SEX: F Status: REG REF SPEC: [id number] CORY: 02/06/[address] [facility] [address]: La Tamayo NP REQ: [id number] RECD: 02/06/19 STATUS: COMP _ SOURCE: URINE SPDC: ORDERED: Urine Culture COMMENTS: 1 baum urine tube [id number] Urine Source: Random Procedure Result Reported Site Urine Culture Final 02/07/19- 1602 ML No Growth (<1,000 CFU/mL) * ML - Main Lab . END OF REPORT DEPARTMENT OF PATHOLOGY, [address] [place] [address] Dayton Bauer M.D. Director [facility] # [id number] Procedures Date Code Description Status 07/08/2019 62731 Pulse Oximetry Completed 02/17/2019 94133 Electrocardiogram Complete Completed 06/18/2008 04151033 Mammogram Completed Medical Devices Description No Information Available Encounters Type Date Location Provider Dx Diagnosis Office Visit 07/15/2019 Main Office Pat Restrepobhart, R07.1 Chest pain on 2:30p TRAVEL OT breathing M94.0 Chondrocostal junction syndrome [Tietze] J06.9 Acute upper respiratory infection, unspecified Office Visit 07/08/2019 Main Office Robb Christiansen06.9 Acute upper 3:00p MD Gisela respiratory infection, unspecified Office Visit 06/19/2019 [facility] Ofelia Cross R35.0 Frequency of 1:30p Office ISA Novak micturition Office Visit 03/04/2019 Main Office Robb Cifuentes R4Any Dizziness and 2:10p Vic Alcaraz giddiness Office Visit 02/17/2019 [facility] Robb Cifuentes M25.562 Pain in left knee 2:40p Office Vic Alcaraz M25.552 Pain in left hip M25.512 Pain in left shoulder M54.5 Low back pain Z01.818 Encounter for other preprocedural examination Office Visit 02/06/2019 11:30a [facility] Office La Ann N39.0 Urinary tract Tamayo, CHEMICAL PRODUCTION ENGINEER infection, site not specified Assessments Date Code Description Provider 07/15/2019 R07.1 Chest pain on breathing Pat Restrepobhart, TRAVEL OT 07/15/2019 M94.0 Chondrocostal junction syndrome [Tietze] Pat Tre , TRAVEL OT 07/15/2019 J06.9 Acute upper respiratory infection, Pat Restrepobhart, TRAVEL OT unspecified 07/13/2019 R06.02 Shortness of breath Robb Alcaraz M.D. 07/08/2019 J06.9 Acute upper respiratory infection, Robb Higgins MD unspecified 06/19/2019 R35.0 Frequency of micturition Ofelia Novak NP 03/04/2019 R42 Dizziness and giddiness Robb Alcaraz M.D. 02/17/2019 M25.562 Pain in left knee Robb Alcaraz M.D. 02/17/2019 M25.552 Pain in left hip Robb Alcaraz M.D. 02/17/2019 M25.512 Pain in left shoulder Robb Alcaraz M.D. 02/17/2019 M54.5 Low back pain Robb Alcaraz M.D. 02/17/2019 Z01.818 Encounter for other preprocedural Robb Alcaraz M.D. examination 02/06/2019 N39.0 Urinary tract infection, site not La Diana Tamayo NP specified Plan of Treatment 07/15/2019 - Pat Toledo, FNPR07.1 Chest pain on breathingComments:with the normal chest x-ray and your clear lungs today, it is very unlikely infection is to blameI suspect you are suffering "Tietze's disease " or costochondritis-- irritation and pain of the breast bone and the soft tissues which coat/surround the ribsVery common in people with recent upper respiratory infection, usually responds well to medrol or other anti-inflammatoryI expect this medication to make a big dent in how you're feeling in 24-48 hours, if it doesn't please callAdditionally: heat, gentle massage, topical analgesic, Tylenol may help with pain and are ok to use nowM94.0 Chondrocostal junction syndrome [Tietze]J06.9 Acute upper respiratory infection, unspecifiedAllNew Medication:Medrol 4 mg - dose-pack as instructed Functional Status Functional Condition Comment Date Status Standard cane is used to ambulate Active Mental Status Description No Information Available Referrals Refer to Reason for Referral Status Appt Date Sheng Brian consult and treat-uriary frequency jw Sent [address] [facility] [place] [address] [place] [address] [phone]
--- OUTSIDE RECORDS SUMMARY | 2019-07-31 20:34 | XMS REPORT | Continuity of Care Document ---
:1930 External Reference #:[id number] Author Name Ofelia Novak NP Address [address] [place] [address] Care Team Providers Name Role Phone [facility] - Inter[facility] Pain Care Team Information Battery Tester And Repairer [phone] Medicine Alberto Desir - Urology Care Team Information Battery Tester And Repairer [phone] Ahsan Villagomez MD - Infectious Care Team Information Battery Tester And Repairer Disease Problems Active Problems Provider Date Urinary [...] is a former smoker Smoking Status Reviewed: 02/06/19 Patient is a former smoker Allergies, Adverse Reactions, Alerts Active Allergies Reaction Severity Comments Date Sulfa Drugs Penicillin Keflex Acyclovir rash all over 03/01/2010 Doxycycline Nausea and Vomiting 06/27/2010 Morphine 05/01/2011 Ceftizoxime 12/01/2014 Seroquel rapid heart rate 01/24/2015 Tramadol bp high 09/20/2017 Inactive Allergies Gabapentin diarrhea 11/10/2009 Medications Active Medications SIG Qnty Indications Ordering Date Provider Ciprofloxacin HCL take one by mouth 14tabs R35.0 Ofelia Cross 06/19/2019 500mg twice daily for 7 Kishore, MOUSE BREEDER Tablets days Fentanyl apply one patch 10units Robb Cifuentes 05/20/2019 12mcg/HR to skin of upper Vic Alcaraz Patches 72HR arm, shoulder every 3 days Lyrica use 1 twice a day 60caps Robb Cifuentes 04/17/2019 50mg Capsules mdd 2 Vic Alcaraz Amitriptyline HCL take one tablet 30tabs Robb Cifuentes 03/05/2019 25mg by mouth at Vic Alcaraz Tablets bedtime Oxycodone HCL take 1 every [...] patient Flunisolide 1-2 sprays each 25ml Sunil Tavarez, 06/04/2015 25mcg/Act nostril every day MEduardo (0.025%) Solution as needed Betamethasone apply sparingly 60gm Robb Cifuentes 12/19/2010 Dipropionate twice a day as Vic Alcaraz 0.05% needed Cream Losartan Potassium 1 every day 30tabs Robb Cifuentes 25mg Vic Alcaraz Tablets Magnesium one a day Unknown 200mg Chewtabs Aspirin 1 by mouth two Unknown 81mg Chewtabs times a day Naproxen Sodium 2 po qam Unknown 220mg Tablets Tylenol Extra 1 po qid Unknown Strength 500mg Tablets History Medications Medrol use as directed 1units Robb Alcaraz, 05/14/2019 - 4mg JAZZY Ho 06/19/2019 Cipro 1 by mouth twice 10tabs R35.0 La rOtiz 02/09/2019 - 500mg a day ISA Tamayo 02/16/2019 Tablets Cipro 1 by mouth twice 10tabs R35.0 La Ortiz 02/06/2019 - 250mg a day ISA Tamayo 02/09/2019 Tablets Macrobid use twice a day 10caps Pat Toledo, 01/22/2019 - 100mg FIELD APPRAISER 02/06/2019 Capsules [facility]anyl [facility] La Ortiz 01/07/2019 - every 3days ISA Tamayo 03/04/2019 12mcg/HR Patches 72HR Cipro 1 by mouth twice 10tabs J01.90 Pat Toledo, 12/25/2018 - 500mg a day FIELD APPRAISER 02/06/2019 Tablets Medications Administered in Office Medication SIG Qnty Indications Ordering Provider Date Injection Subcutaneous Or Robb Alcaraz M.D. 09/23/2007 Intramuscular Injection Immunizations CPT Code Status Date Vaccine Lot # [id number] Given 02/01/2019 Influenza Vac, Quadriv[place], [place] [address] Given 01/29/2018 Pneumococcal Conjugate Vacc-13 [id number] Given 01/24/2018 Influenza Vac, Quadrivalent, Slit Virus, Im Vital Signs Date Vital Result Comment 06/19/2019 1:22pm BP Systolic 160 mmHg BP Diastolic 80 mmHg Heart Rate 66 /min Body Temperature 98.4 F Height 61 inches 5'1" Weight 113.00 lb per pt BMI (Body Mass Index) 21.3 kg/m2 03/04/2019 1:59pm BP Systolic 118 mmHg BP Diastolic 78 mmHg Heart Rate 62 /min Body Temperature 97.6 F Respiratory Rate 20 /min Weight 109.00 lb Results Test Acquired Date Facility Test Result H/L Range Note Xray 05/25/2019 [facility] Minimum 4 <pending> [facility] Views [phone] Hip Complete Min 2 Views LT <pending> Basic Metabolic Profile 03/04/2019 Garibay Yadi(a) Sodium 136 mEq/L 134-149 Potassium 4.4 mEq/L 3.6-5.5 Chloride 103 mEq/L 94-112 Carbon Dioxide 28 mEq/L 21-32 Glucose 107 mg/dL High 70-105 1 BUN 26 mg/dL 6-26 Creatinine 0.7 mg/dL 0.6-1.4 BUN/Creat Ratio 37.1 CALC High 8.0-36.0 Calcium 10.1 mg/dL 8.6-10.2 GFR Non- >60 ml/min/1.73m^ >=60 GFR >60 ml/min/1.73m^ >=60 Laboratory test 03/04/2019 [place] Yadi(a) Magnesium, Serum 2.1 mEq/L 1.2-2.1 finding TSH 2.62 mIU/L 0.50-6.00 CBC Electronic (Fma New) 03/04/2019 [facility] WBC 5.33 4.0-10.0 (607)- - RBC 4.27 [...] 0.8 % 0-1.2 Urine Culture And 02/06/2019 [facility] Urine Culture SEE RESULT 2 Sensitivities BELOW Ua - Micro (Fma) 02/06/2019 [facility] medicine Appearance good (607)- - Color clear Glucose, Urine (Fma/CMC/CTX) neg Bilirubin neg Ketones neg SP Grav 1.015 Blood neg PH 5.0 Protein neg Urobil 0.2 Nitrite neg Leukocytes (Fma/CMC/Centrex) neg Hyaline - /Lpf Granular - /Lpf WBC (Fma,Centrex) 0-1 RBC 0-1 Mucus (Fma/CBC/Centrex) - /Lpf Epith occ /Lpf Bacteria trace /Hpf Amorphous (Fma/CMC/Centrex) - /Lpf Crystals, Fluid (Fma/CMC/CTX) - Z#Comments - 1 NON-FASTING 2 SEE RESULT BELOW Name: LOURDES VILLEGAS Zachary : [address]: La Tamayo NP Acct: [id number] Unit: [id number] AGE: 88 Location: [facility] Re02/06/19 SEX: F Status: REG REF SPEC: [id number] CORY: 02/06/19 [facility] [address]: La Tamayo NP REQ: [id number] RECD: 02/06/19 STATUS: COMP _ SOURCE: URINE SPDESC: ORDERED: Urine Culture COMMENTS: 1 baum urine tube [id number] Urine Source: Random Procedure Result Reported Site Urine Culture Final 02/07/19- 1602 ML No Growth (<1,000 CFU/mL) * ML - Main Lab . END OF REPORT DEPARTMENT OF PATHOLOGY, [address] [place] [address] Dayton Bauer M.D. Director [facility] # [id number] Procedures Date Code Description Status 02/17/2019 49199 Electrocardiogram Complete Completed 06/18/2008 39349614 Mammogram Completed Medical Devices Description No Information Available Encounters Type Date Location Provider Dx Diagnosis Office Visit 03/04/2019 Main Office Robb Cifuentes R42 Dizziness and 2:10p Vic Alcaraz giddiness Office Visit 02/17/2019 [facility] Robb Cifuentes M25.562 Pain in left knee 2:40p Vic Alcaraz M25.552 Pain in left hip M25.512 Pain in left shoulder M54.5 Low back pain Z01.818 Encounter for other preprocedural examination Office Visit 02/06/2019 11:30a [facility] La Ortiz N39.0 Urinary tract ISA Tamayo infection, site not specified Office Visit 12/25/2018 1:00p [facility] Office Pat Foster.Merle Acute sinusitis, Tre, SOULEYMANE unspecified Assessments Date Code Description Provider 06/19/2019 R35.0 Frequency of micturition Ofelia Novak [...] N39.0 Urinary tract infection, site not La Tamayo NP specified 12/25/2018 [place] Acute sinusitis, unspecified SOULEYMANE Chavarria Plan of Treatment 06/19/2019 - Ofelia Novak, NPR35.0 Frequency of micturitionNew Medication: Ciprofloxacin HCL 500 mg - take one by mouth twice daily for 7 daysNew Labs:Ua - Micro (Fma), Ordered: 06/19/19Culture Urine, Ordered: 06/19/19Comments:If you are not improved within 48 hours please call or write to let me know.AllComments :1. Patient has been queried about patient's goals/preferences and functional/ lifestyle goals at relevant visits. If relevant, describe: Has been discussed, noted above2. Treatment goals as explainedto the patient: see above3. Are there barriers to meeting treatment goals? Yes If Yes, please describe: Barriers include possible insurance limits, disease process, and difficulty with lifestyle changes4. Self-Management goals as described to the patient: Yes , see above As always, we strongly encourage a healthy diet and making physical activity a part of your every day life. If you have questions about how or where to start, please contact the office. Functional Status Functional Condition Comment Date Status Standard cane is used to ambulate Active Mental Status Description No Information Available Referrals Description No Information Available
--- OUTSIDE RECORDS SUMMARY | 2019-07-31 20:34 | XMS REPORT | Continuity of Care Document ---
:1930 External Reference #:[id number] Author Name Ofelia Novak, ISA Address [address] [place] [address] Care Team Providers Name Role Phone [facility] - Interventional Pain Care Team Information Director Equipment Medicine Alberto Desir - Urology Care Team Information Director Equipment [phone] Ahsan Villagomez MD - Infectious Care Team Information Director Equipment Disease Problems Active Problems Provider Date Urinary [...] Medications SIG Qnty Indications Ordering Date Provider Movantik Take one by mouth 14tabs K59.03 Ofelia Cross 07/31/2019 25mg Tablets daily ISA Novak Magnesium Citrate give 1/2 of 296ml K59.03 Ofelia Cross 07/31/2019 bottle as one ISA Novak 1.745GM/30ML dose. if no bowel Solution movement after 12 hours, give other half. Azithromycin take 2 tablets by 6tabs J01.90 Pat 07/21/2019 250mg mouth today then Tre, CONSERVATION POLICY ANALYST Tablets take 1 tablet daily for next 4 days Medrol dose-pack as 1pack Pat 07/15/2019 4mg Tablets instructed Tre, CONSERVATION POLICY ANALYST Ciprofloxacin HCL take one by mouth 14tabs R35.0 Ofelia Cross 06/19/2019 twice daily for 7 ISA Novak 500mg Tablets days Fentanyl apply one patch [...] Sunil Tavarez, 06/04/2015 25mcg/Act nostril every day M.DGerardo (0.025%) Solution as needed Betamethasone apply sparingly [...] 1units Robb Alcaraz, 05/14/2019 - 4mg TBPK Vic 06/19/2019 Cipro 1 by mouth twice a 10tabs R35.0 La Diana 02/09/2019 - 500mg day Tamayo, FLAT SCREEN WORKER 02/16/2019 Tablets Cipro 1 by mouth twice a 10tabs R35.0 La Ann 02/06/2019 - 250mg day Tamayo, FLAT SCREEN WORKER 02/09/2019 Tablets Medications Administered in Office Medication SIG Qnty Indications Ordering Provider Date Injection Subcutaneous Or Robb Alcaraz M.D. 09/23/2007 Intramuscular Injection Immunizations CPT Code Status Date Vaccine Lot # [id number] Given 02/01/2019 Influenza Vac, Quadriv[place], [place] [address] Given 01/29/2018 Pneumococcal Conjugate Vacc-13 [id number] Given 01/24/2018 Influenza Vac, Quadrivalent, Slit Virus, [...] Result H/L Range Note Laboratory test 07/13/2019 [facility] Covid19, PCR Undetected 1 finding Flu A&B (a) 07/08/2019 [facility] Influenza A negative (607)- - Influenza B negative Ua - Micro (a) 06/19/2019 [facility] medicine Appearance clear (607)- - Color yellow Glucose, [...] - Z#Comments - Urine Culture And 06/19/2019 [facility] Urine Culture SEE RESULT 2 Sensitivities BELOW Xray 05/25/2019 [facility] <pending> [facility] Minimum 4 Views [phone] Hip Complete Min 2 Views LT <pending> Basic Metabolic Profile 03/04/2019 [place] Yadi(a) Sodium 136 mEq/L 134-149 Potassium 4.4 mEq/L 3.6-5.5 Chloride 103 mEq/L 94-112 Carbon Dioxide 28 mEq/L 21-32 Glucose 107 mg/dL High 70-105 3 BUN 26 mg/dL 6-26 Creatinine 0.7 mg/dL 0.6-1.4 BUN/Creat Ratio 37.1 CALC High 8.0-36.0 Calcium 10.1 mg/dL 8.6-10.2 GFR Non- >60 ml/min/1.73m^ >=60 GFR >60 ml/min/1.73m^ >=60 Laboratory test 03/04/2019 Garibay Yadi([facility]) Magnesium, Serum 2.1 mEq/L 1.2-2.1 finding TSH 2.62 mIU/L 0.50-6.00 CBC Electronic (a New) 03/04/2019 [facility] WBC 5.33 4.0-10.0 (607)- - RBC 4.27 [...] 0.8 % 0-1.2 Urine Culture And 02/06/2019 [facility] Urine Culture SEE RESULT 4 Sensitivities BELOW Ua - Micro (a) 02/06/2019 [facility] medicine Appearance yelloe (607)- - Color clear Glucose, Urine (Fma/CMC/CTX) neg Bilirubin neg Ketones neg SP Grav 1.015 Blood neg PH 5.0 Protein neg Urobil 0.2 Nitrite neg Leukocytes (Fma/CMC/Centrex) neg Hyaline - /Lpf Granular - /Lpf WBC (a,Centrex) 0-1 RBC 0-1 Mucus (Fma/CBC/Centrex) - /Lpf Epith occ /Lpf Bacteria trace /Hpf Amorphous (Fma/CMC/Centrex) - /Lpf Crystals, Fluid (Fma/CMC/CTX) - Z#Comments - 1 Reference Range: Undetected SARS-CoV-2 RNA is not detected. ADDITIONAL INFORMATION Testing was performed using the anne SARS-CoV-2 assay ([employer] on the anne 6800 System. Fact sheets for this Emergency Use Authorization (EUA) assay can be found at the following links: For Healthcare Providers: https://www.fda.gov/media/594868/download For Patients: https://www.fda.gov/WeVideo/854455/download Test Performed by: [facility] [place] [address] Authorizer: Junior Redmond M.D. Ph.D.; CLIA# [id number] 2 SEE RESULT BELOW Name: LOURDES CORONEL : [address]: Ofelia Novak NP Acct: [id number] Unit: [id number] AGE: 88 Location: [facility] Re06/19/19 SEX: F Status: REG REF SPEC: [id number] CORY: 06/19/19-[address]: Ofelia Novak FLAT SCREEN WORKER REQ: [id number] RECD: 06/19/19466 STATUS: COMP _ S[facility] ORDERED: Urine Culture COMMENTS: [id number] Urine Source: Random Procedure Result Reported Site Urine Culture Final 06/20/19- 1521 ML No growth of clinically significant organisms * ML - Main Lab . END OF REPORT DEPARTMENT OF PATHOLOGY, [address] [place] [address] Dayton Bauer M.D. Director [facility] # [id number] 3 NON-FASTING 4 SEE RESULT BELOW Name: LOURDES CORONEL : [address]: La Tamayo NP Acct: [id number] Unit: [id number] AGE: 88 Location: [facility] Re02/06/19 SEX: F Status: REG REF SPEC: [id number] CORY: 02/06/[address] [facility] [address]: La Tamayo NP REQ: [id number] RECD: 02/06/19 STATUS: COMP _ SOURCE: URINE SPDESC: ORDERED: Urine Culture COMMENTS: 1 baum urine tube [id number] Urine Source: Random Procedure Result Reported Site Urine Culture Final 02/07/19- 1602 ML No Growth (<1,000 CFU/mL) * - Main Lab . END OF REPORT DEPARTMENT OF PATHOLOGY, [address] [place] [address] Dayton Bauer M.D. Director [facility] # [id number] Procedures Date Code Description Status 07/15/2019 19248 Pulse Oximetry Completed 07/08/2019 26424 Pulse Oximetry Completed 02/17/2019 83917 Electrocardiogram Complete Completed 06/18/2008 18679858 Mammogram Completed Medical Devices Description No Information Available Encounters Type Date Location Provider Dx Diagnosis Office Visit 07/31/2019 Main Office Ofelia Novak K59.03 Drug induced 11:00a FLAT SCREEN WORKER constipation Office Visit 07/15/2019 Main Office Pat Toledo R07.1 Chest pain on 2:30p CONSERVATION POLICY ANALYST breathing M94.0 Chondrocostal junction syndrome [Tietze] J06.9 Acute upper respiratory infection, unspecified Office Visit 07/08/2019 Main Office Robb Marino J06.9 Acute upper 3:00p MD Gisela respiratory infection, unspecified Office Visit 06/19/2019 [facility] Ofelia Cross R35.0 Frequency of 1:30p Office ISA Novak micturition Office Visit 03/04/2019 Main Office Robb Cifuentes R42 Dizziness and 2:10p Vic Alcaraz giddiness Office Visit 02/17/2019 [facility] Robb Cifuentes M25.562 Pain in left knee 2:40p Office Vic Alcaraz M25.552 Pain in left hip M25.512 Pain in left shoulder M54.5 Low back pain Z01.818 Encounter for other preprocedural examination Office Visit 02/06/2019 11:30a [facility] Office La Ortiz N39.0 Urinary tract ISA Tamayo infection, site not specified Assessments Date Code Description Provider 07/31/2019 K59.03 Drug induced constipation Ofelia Novak NP 07/15/2019 R07.1 Chest pain on breathing Pat Toledo, CONSERVATION POLICY ANALYST 07/15/2019 M94.0 Chondrocostal junction syndrome [Tietze] Pat Toledo CONSERVATION POLICY ANALYST 07/15/2019 J06.9 Acute upper respiratory infection, Pat Toledo, CONSERVATION POLICY ANALYST unspecified 07/13/2019 R06.02 Shortness of breath Robb [...] Diana Tamayo NP specified Plan of Treatment 07/31/2019 - Ofelia Novak NPK59.03 Drug induced constipationNew Medication :Movantik 25 mg - Take one by mouth dailyMagnesium Citrate 1.745 GM/30ML - give 1/2 of bottle as one dose. if no bowel movement after 12 hours, give other half.Comments:Try magnesium citrate and the movantik with clear liquid diet; also attempt another fleet enema today and tomorrow. If you have worsening/ severe abdominal pain, fever, fainting, or other worsening please don't hesitate to go to the emergency department over the weekend.We will schedule another phone visit for saturday to check in.AllComments:1. Patient has been queried about patient's goals/preferences and functional/lifestyle goals at relevant visits. If relevant, describe: Has been discussed, noted above2. Treatment goals as explainedto the patient: see above3. Are there barriers to meeting treatment goals? Yes If Yes, please describe: Barriers include possible insurance limits, disease process, and difficulty with lifestyle changes4. Self-Management goals as described to the patient: Yes, see above As always, we strongly encourage [...] Sheng Brian consult and treat-uriary frequency jw Scheduled [address] [place] [address] [place] [address] [phone]
--- OUTSIDE RECORDS SUMMARY | 2019-07-31 20:34 | XMS REPORT | Continuity of Care Document ---
:1930 External Reference #:[id number] Author Name Robb Higgins MD Address [address] [place] [address] Care Team Providers Name Role Phone [facility] - Interventional Pain Care Team Information Radio Artist Medicine Alberto Desir - Urology Care Team Information Radio Artist [phone] Ahsan Villagomez MD - Infectious Care Team Information Radio Artist Disease Problems Active Problems Provider Date Urinary [...] Alcaraz M.D. Onset: 11/22/2014 Referred otalgia Robb Alcaarz M.D. Onset: 12/13/2014 Weight decreased Robb Alcaraz M.D. Onset: 01/14/2015 Acute maxillary sinusitis oRbb Alcaraz M.D. Onset: 05/17/2015 Epistaxis Robb Alcaraz [...] 06/19/2019 500mg twice daily for 7 Kishore, VETERINARY VIROLOGIST Tablets days Fentanyl apply one patch 10units Robb Cifuentes 05/20/2019 12mcg/HR to skin of upper Vic Alcaraz Patches 72HR arm, shoulder every 3 days Lyrica use 1 twice a day 60caps Robb Cifuentes 04/17/2019 50mg Capsules mdd 2 [facility] Alcaraz Amitriptyline HCL take one tablet 30tabs [...] Sunil Tavarez, 06/04/2015 25mcg/Act nostril every day Vic (0.025%) [...] Vic 06/19/2019 Cipro 1 by mouth twice 10tabs R35.0 La Ann 02/09/2019 - 500mg a day Tamayo, VETERINARY VIROLOGIST 02/16/2019 Tablets Cipro 1 by mouth twice 10tabs R35.0 La Ann 02/06/2019 - 250mg a day Tamayo, VETERINARY VIROLOGIST 02/09/2019 Tablets Macrobid use twice a day 10caps Patkathy Toledo, 01/22/2019 - 100mg DIPPER CLOCK AND WATCH HANDS 02/06/2019 Capsules Medications Administered in Office Medication SIG Qnty Indications Ordering Provider Date Injection Subcutaneous Or Robb Alcaraz M.D. 09/23/2007 Intramuscular Injection Immunizations CPT Code Status Date Vaccine Lot # [id number] Given 02/01/2019 Influenza Vac, Quadriv[place], [place] [address] Given 01/29/2018 Pneumococcal Conjugate Vacc-13 [id number] Given 01/24/2018 Influenza Vac, Quadrivalent, Slit Virus, Im Vital Signs Date Vital Result Comment 07/08/2019 3:41pm BP Systolic 154 mmHg BP Diastolic 106 mmHg Heart Rate 82 /min Body Temperature 98.6 F O2 % BldC Oximetry 97 % 06/19/2019 1:22pm BP Systolic 160 mmHg BP Diastolic 80 mmHg Heart Rate 66 /min Body Temperature 98.4 F Height 61 inches 5'1" Weight 113.00 lb per pt BMI (Body Mass Index) 21.3 kg/m2 Results Test Acquired Date Facility Test Result H/L Range Note Flu A&B (Fma) 07/08/2019 [facility] Influenza A negative (607)- - Influenza B negative Ua - Micro (Fma) 06/19/2019 [facility] Appearance clear (607)- - Color [...] - Z#Comments - Urine Culture And 06/19/2019 [facility] Urine Culture SEE RESULT 1 Sensitivities BELOW Xray 05/25/2019 [facility] <pending> [facility] Minimum 4 Views [phone] Hip Complete Min 2 Views LT <pending> Basic Metabolic Profile 03/04/2019 Garib[facility] Yadi(a) Sodium 136 mEq/L 134-149 Potassium 4.4 mEq/L 3.6-5.5 Chloride 103 mEq/L 94-112 Carbon Dioxide 28 mEq/L 21-32 Glucose 107 mg/dL High 70-105 2 BUN 26 mg/dL 6-26 Creatinine 0.7 mg/dL 0.6-1.4 BUN/Creat Ratio 37.1 CALC High 8.0-36.0 Calcium 10.1 mg/dL 8.6-10.2 GFR Non- >60 ml/min/1.73m^ >=60 GFR >60 ml/min/1.73m^ >=60 Laboratory test 03/04/2019 Garibay Yadi(a) Magnesium, Serum 2.1 mEq/L 1.2-2.1 finding TSH 2.62 mIU/L 0.50-6.00 CBC Electronic (Fma New) 03/04/2019 [facility] WBC 5.33 4.0-10.0 (607)- - RBC 4.27 [...] 0.8 % 0-1.2 Urine Culture And 02/06/2019 [facility] Urine Culture SEE RESULT 3 Sensitivities BELOW Ua - Micro (Fma) 02/06/2019 [facility] Appearance good (607)- - [...] Crystals, Fluid (Fma/CMC/CTX) - Z#Comments - 1 SEE RESULT BELOW Name: LOURDES VILLEGAS: [address]: Ofelia Novak VETERINARY VIROLOGIST Acct: [id number] Unit: [id number] AGE: 88 Location: [facility] Re06/19/19 SEX: F Status: REG REF SPEC: [id number] CORY: 06/19/19-[address]: Ofelia Novak VETERINARY VIROLOGIST REQ: [id number] RECD: 06/19/19-1828 STATUS: COMP _ SOURCE: URINE SPDESC: ORDERED: Urine Culture COMMENTS: [id number] Urine Source: Random Procedure Result Reported Site Urine Culture Final 06/20/19- 1529 ML No growth of clinically significant organisms * ML - Main Lab . END OF REPORT DEPARTMENT OF PATHOLOGY, [address] [place] [address] Dayton Bauer M.D. Director [facility] # [id number] 2 NON-FASTING 3 SEE RESULT BELOW Name: LOURDES VILLEGAS Zachary : [address]: La Tamayo NP Acct: [id number] Unit: [id number] AGE: 88 Location: [facility] Re02/06/19 SEX: F Status: REG REF SPEC: [id number] CORY: 02/06/[address] [facility] [address]: La Tamayo NP REQ: [id number] RECD: 02/06/19 STATUS: COMP _ SOURCE: URINE SPDESC: ORDERED: Urine Culture COMMENTS: 1 baum urine tube [id number] Urine Source: Random Procedure Result Reported Site Urine Culture Final 02/07/19- 1602 ML No Growth (<1,000 CFU/mL) * ML - Main Lab . END OF REPORT DEPARTMENT OF PATHOLOGY, [address] [place] [address] Dayton Bauer M.D. Director [facility] # [id number] Procedures Date Code Description Status 02/17/2019 98824 Electrocardiogram Complete Completed 06/18/2008 24514017 Mammogram Completed Medical Devices Description No Information Available Encounters Type Date Location Provider Dx Diagnosis Office Visit 07/08/2019 Main Office Robb Marino J06.9 Acute upper 3:00p MD Gisela respiratory infection, unspecified Office Visit 06/19/2019 [facility] Office Ofelia Cross R35.0 Frequency of 1:30p ISA Novak micturition Office Visit 03/04/2019 Main Office Robb Cifuentes R42 Dizziness and 2:10p Vic Alcaraz giddiness Office Visit 02/17/2019 [facility] Office Robb Cifuentes M25.562 Pain in left knee 2:40p Vic Alcaraz M25.552 Pain in left hip M25.512 Pain in left shoulder M54.5 Low back pain Z01.818 Encounter for other preprocedural examination Office Visit 02/06/2019 11:30a [facility] Office La Ortiz N39.0 Urinary tract ISA Tamayo infection, site not specified Assessments Date Code Description Provider 07/08/2019 J06.9 Acute upper respiratory infection, Robb [...] infection, site not La Tamayo NP specified Plan of Treatment 07/08/2019 - Robb Higgins MDJ06.9 Acute upper respiratory infection, unspecifiedComments:patient agrees to call if symptoms worsenAllComments: Medication Management Patient Understands medications she's taking? Yes No Are there Barriers to Adherence? Yes No Has the patient been asked about herbal supplements and therapies, and OTC meds? Yes No Functional Status Functional Condition Comment Date Status Standard cane is used to ambulate Active Mental Status Description No Information Available Referrals Refer to Reason for Referral Status Appt Date Sheng Brian consult and treat-uriary frequency jw Sent [address] [place] [address] [place] [address] [phone]
--- OUTSIDE RECORDS SUMMARY | 2019-07-31 20:34 | XMS REPORT | Continuity of Care Document ---
:1930 External Reference #:[id number] Author Name [facility] (transmitted by agent of provider Loi Ji) Address [address] [place] [address] Care Team Providers Name Role Phone Robb Alcaraz MD - Family Medicine Care Team Information [employer] [phone] Problems Active Problems Provider Date Cervical spondylosis without myelopathy Michele Mitchell M.D. Onset: 07/23/2014 Localized, primary osteoarthritis Юлия Anaya M.D. Onset: 02/12/2018 Prosthetic arthroplasty of the hip Юлия Anaya M.D. Onset: 02/12/2018 Trochanteric bursitis Юлия Anaya M.D. Onset: 07/25/2018 Neck pain Nya Lassiter MD Onset: 03/17/2019 Social History Type Date Description Comments Sex Unknown ETOH Use Rarely consumes alcohol Tobacco Use Start: Unknown End: Unknown Patient is a former smoker Recreational Drug Use Denies Drug Use Smoking Status Reviewed: 05/25/19 Patient is a former smoker Allergies, Adverse Reactions, Alerts Active Allergies Reaction Severity Comments Date Penicillins Urticaria 06/18/2011 Sulfa mouth sores 06/18/2011 Cephalosporins Urticaria 06/18/2011 Valtrex Urticaria 06/18/2011 Morphine Nausea and Vomiting 06/18/2011 Doxycycline Nausea and Vomiting 06/18/2011 Quetiapine heart palpitations 12/07/2015 Tamiflu 02/12/2018 Medications Active Medications SIG Qnty Indications Ordering Provider Date Acetaminophen as needed Unknown 325mg Tablets Oxycodone HCL 1-2 tabs by Unknown 5mg Capsules mouth every 4-6 hours as needed pain Multivitamin Adults 50+ once a day Unknown Adlt 50+ Tablets Probiotic Acidophilus once a day Unknown Capsules Betamethasone Unknown Dipropionate 0.05% Cream Zolpidem Tartrate Unknown 5mg Tablets Fexofenadine HCL Unknown Cimetidine as needed Unknown 200mg Tablets Tylenol 8 Hour Unknown Losartan Potassium Unknown 25mg Tablets Medications Administered in Office Medication SIG Qnty Indications Ordering Provider Date Triamcinolone (Kenalog) Юлия Anaya M.D. 04/27/2019 Injection Triamcinolone (Kenalog) Юлия Anaya M.D. 04/27/2019 Injection Triamcinolone (Kenalog) Nya Lassiter MD 03/17/2019 Injection Depomedrol 40MG Юлия Anaya M.D. 01/30/2019 Injection Depomedrol 40MG Юлия Anaya M.D. 11/24/2018 Injection Depomedrol 40MG Юлия Anaya M.D. 07/25/2018 Injection Depomedrol 40MG Юлия Anaya M.D. 07/25/2018 Injection Depomedrol 40MG Юлия Anaya M.D. 02/12/2018 Injection Depomedrol 40MG Salomon Goodrich M.D. 02/20/2017 Injection Inj, Regadenoson, 0.1 MG Adal Ball, DO [facility] 08/14/2016 Injection Technetium TC 99M Adal Ball, DO [facility] 08/14/2016 Tetrofosmin, Per Unit Dose Up To 40 Millicuries Injection Technetium TC 99M Trae Dillard M.D., 08/13/2016 Tetrofosmin, Per Unit Dose Up FACC, FASNC To 40 Millicuries Injection Synvisc Or Synvisc-One Salomon Goodrich M.D. 06/29/2016 Injection 1 MG Injection Synvisc Or Synvisc-One Salomon Goodrich M.D. 10/10/2015 Injection 1 MG Injection Synvisc Or Synvisc-One LANA Orourke 03/31/2014 Injection 1 MG Injection Depomedrol 80MG Salomon Goodrich M.D. 06/15/2013 Injection Depomedrol 80MG Salomon Goodrich M.D. 08/27/2012 Injection Depomedrol 40MG LANA [place] 12/22/2009 Injection Depomedrol 40MG Sydney Teresa PA 01/24/2009 Injection Immunizations Description No Information Available Vital Signs Date Vital Result Comment 05/25/2019 3:32pm Height 59 inches 4'11" Weight 108.00 lb Heart Rate 100 /min BP Systolic 142 mmHg BP Diastolic 78 mmHg Respiratory Rate 16 /min Body Temperature 98.4 F Pain Level 8 O2 % BldC Oximetry 96 % BMI (Body Mass Index) 21.8 kg/m2 04/27/2019 9:50am Height 59 inches 4'11" Weight 108.00 lb Heart Rate 69 /min BP Systolic 136 mmHg BP Diastolic 84 mmHg Body Temperature 95.4 F Pain Level 10 BMI (Body Mass Index) 21.8 kg/m2 Results Description No Information Available Procedures Date Code Description Status 04/27/2019 Inject/Drain Joint/Bursa Major W/O US Completed 04/27/2019 Injection Single Tendon Origin/Insertion Completed 03/17/2019 Inject/Drain Joint/Bursa Major W/O US Completed 01/30/2019 Injection Single Tendon Origin/Insertion Completed Medical Devices Description No Information Available Encounters Type Date Location Provider Dx Diagnosis Office Visit 04/27/2019 [facility] Юлия Anaya, M25.562 Pain in left knee 9:30a at [facility].DGerardo M25.462 Effusion, left knee M17.12 Unilateral primary osteoarthritis, left knee M70.62 Trochanteric bursitis, left hip Z96.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 M25.552 Pain in left hip Office Visit 03/17/2019 9:00a [facility] Nya Lassiter M25.512 Pain in left at [facility] shoulder M19.012 Primary osteoarthritis, left shoulder M54.2 Cervicalgia Office Visit 02/25/2019 10:45a [facility] Юлия Anaya M25.562 Pain in left at [facility].Gerardo knee M25.462 Effusion, left knee M17.12 Unilateral primary osteoarthritis, left knee M25.552 Pain in left hip M70.62 Trochanteric bursitis, left hip 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 04/27/2019 M25.462 Effusion, left knee Юлия Anaya M.D. 04/27/2019 M17.12 Unilateral primary osteoarthritis, left knee Юлия Anaya M.D. 04/27/2019 M70.62 Trochanteric bursitis, left hip Юлия Anaya M.D. 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 04/27/2019 M25.552 Pain in left hip Юлия Anaya M.D. 03/17/2019 M25.512 Pain in left shoulder Nya Lassiter MD 03/17/2019 M19.012 Primary osteoarthritis, left shoulder Nya Lassiter MD 03/17/2019 M54.2 Cervicalgia Nya Lassiter MD 02/25/2019 M25.562 Pain in left knee Юлия Anaya M.D. 02/25/2019 M25.462 Effusion, left knee Юлия Anaya M.D. 02/25/2019 M17.12 Unilateral primary osteoarthritis, left knee Юлия Anaya M.D. 02/25/2019 M25.552 Pain in left hip Юлия Anaya M.D. 02/25/2019 M70.62 Trochanteric bursitis, left hip Юлия Anaya M.D. 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 02/25/2019 M21.062 Valgus deformity, not elsewhere classified, Юлия Anaya M.D. left knee 01/30/2019 M25.562 Pain in left knee Юлия Anaya M.D. 01/30/2019 M25.462 Effusion, left knee Юлия Anaya M.D. 01/30/2019 M17.12 Unilateral primary osteoarthritis, left knee Юлия Anaya M.D. 01/30/2019 M25.552 Pain in left hip Юлия Anaya M.D. 01/30/2019 M70.62 Trochanteric bursitis, left hip Юлия Anaya M.D. 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 01/30/2019 M21.062 Valgus deformity, not elsewhere classified, Юлия Anaya M.D. left knee Plan of Treatment Future Appointment(s):07/20/2019 10:30 am - Юлия Anaya M.D. at [facility] Functional Status Description No Information Available Mental Status Description No Information Available Referrals Refer to Dr Reason for Referral Status Appt Date Afshan Tong MD Closed [address] [place] [address] [phone]
[2019-07-31 20:47] LABS: Albumin/Globulin Ratio 1.4 (1-3); BUN/Creatinine Ratio 32.3 (8-20); C Reactive Protein 50.77 mg/L (<8.01); Calcium 10.4 mg/dL (8.6-10.3); EGFR African American 104.3 (>60); EGFR Non-African American 86.2 (>60); Globulin 2.9 g/dL (2-4); Potassium 3.8 mmol/L (3.5-5.0); Total Bilirubin 0.7 mg/dL (0.2-1.0); Total Protein 6.9 g/dL (6.4-8.9)
[2019-07-31] MEDS ORDERED: Iohexol 300* (CONTRAST) 10 ML SDV IV ONE (21:14)
[2019-07-31] MEDS ORDERED: Losartan TAB* 25 MG PO ONE (22:18)
[2019-08-01] MEDS ORDERED: O ndansetron ODT 4MG 5TAB PRPK 4 MG PAK PO ONE (00:07)
[2019-08-01] MEDS ORDERED: LORazepam TAB(*) 1 MG PO ONE (00:17)
[2019-08-01] MEDS ORDERED: hydrALAZINE IV* 20 MG/ML VIAL IV SLOW PU ONE (00:25)
[2019-08-01 01:59] VITALS: BP 162/88
== END 2019-08-01 01:30 | disposition home or self-care (01) ==
LOC: ED 19:40
DX: K59.00 Constipation, unspecified (principal); I10 Essential (primary) hypertension; Z85.51 Personal history of malignant neoplasm of bladder; Z87.891 Personal history of nicotine dependence; Z90.6 Acquired absence of other parts of urinary tract; Z90.89 Acquired absence of other organs; Z96.651 Presence of right artificial knee joint; Z96.642 Presence of left artificial hip joint; Z79.899 Other long term (current) drug therapy; Z88.0 Allergy status to penicillin; Z88.1 Allergy status to other antibiotic agents; Z88.2 Allergy status to sulfonamides; Z88.5 Allergy status to narcotic agent; Z88.8 Allergy status to other drugs, medicaments and biological substances; Z91.040 Latex allergy status
CPT/HCPCS: 36415; 74177; 80053; 81003; 81015; 83605; 83690; 85025; 86140; 96374; 96375; 99285; A9270-GY; J0360; J2405; Q9967

== ENCOUNTER 2020-06-08 12:20 | Inpatient (IN) ==
[2020-06-08 13:54] LABS: Hematocrit 29 % (35-47); Hemoglobin 9.7 g/dL (12.0-16.0); Mean Corpuscular HGB Conc 33 g/dL (31-36); Mean Corpuscular Hemoglobin 29 pg (27-31); Mean Corpuscular Volume 87 fL (80-97); Red Blood Count 3.31 10^6 /uL (3.70-4.87); Red Cell Distribution Width 13 % (10-15)
[2020-06-08 14:07] LABS: Albumin 3.8 g/dL (3.2-5.2); Albumin/Globulin Ratio 1.7 (1-3); BUN/Creatinine Ratio 50.9 (8-20); Calcium 9.7 mg/dL (8.6-10.3); EGFR African American 54.6 (>60); EGFR Non-African American 45.1 (>60); Globulin 2.2 g/dL (2-4); Potassium 4.8 mmol/L (3.5-5.0); Total Bilirubin 0.5 mg/dL (0.2-1.0)
[2020-06-08] MEDS ORDERED: Prochlorperazine 5 mg/ml 2 ml VIAL (10 mg) IV PRN (14:08)
[2020-06-08 14:24] LABS: ABS Eosinophils 0.1 10^3/ul (0-0.6); ABS Lymphocytes 1.3 10^3/ul (1.0-4.8); ABS Monocytes 0.6 10^3/ul (0-0.8); ABS Neutrophils 6.3 10^3/ul (1.5-7.7); Eosinophil % 0.6 %; Mean Platelet Volume 9.9 fL (7.4-10.4); Nucleated Red Blood Cells % 0.1; Platelet Count 175 10^3/uL (150-450); White Blood Count 8.3 10^3/uL (3.5-10.8)
[2020-06-08] MEDS ORDERED: Tetan/Diph/Pertus SYR(Tdap) 0.5 ML SYR(BOOSTRIX) use SYR contains LATEX IM ONE (14:33)
[2020-06-08] MEDS ORDERED: fentaNYL PATCH 25 MCG/HR 1 PATCH TRANSDERM SCH (18:00)
[2020-06-08] MEDS: fentaNYL Patch Check Q Shift NOTE FOLLOW UP SCH (18:59)
[2020-06-08] MEDS ORDERED: Heparin 5000 UNITS/ML 1 mL VIAL SUBCUT SCH (22:00)
[2020-06-09 06:56] LABS: ABS Eosinophils 0.3 10^3/ul (0-0.6); ABS Monocytes 0.3 10^3/ul (0-0.8); ABS Neutrophils 1.6 10^3/ul (1.5-7.7); Hematocrit 27 % (35-47); Hemoglobin 9.1 g/dL (12.0-16.0); Lymphocyte % 30.3 %; Mean Corpuscular HGB Conc 34 g/dL (31-36); Mean Corpuscular Hemoglobin 29 pg (27-31); Mean Corpuscular Volume 87 fL (80-97); Mean Platelet Volume 9.5 fL (7.4-10.4); Platelet Count 173 10^3/uL (150-450); Red Blood Count 3.09 10^6 /uL (3.70-4.87); Red Cell Distribution Width 13 % (10-15); White Blood Count 3.2 10^3/uL (3.5-10.8)
[2020-06-09 07:15] LABS: Anion Gap 6 mmol/L (2-11); BUN/Creatinine Ratio 47.2 (8-20); Blood Urea Nitrogen 58 mg/dL (6-24); CO2 Carbon Dioxide 26 mmol/L (22-32); Calcium 9.3 mg/dL (8.6-10.3); Chloride 104 mmol/L (101-111); EGFR Non-African American 41.3 (>60); Glucose 96 mg/dL (70-100); Potassium 4.3 mmol/L (3.5-5.0); Sodium 136 mmol/L (135-145)
[2020-06-09] MEDS: fentaNYL Patch Check Q Shift NOTE FOLLOW UP SCH ×2 (07:15→18:55)
[2020-06-09] MEDS: NS 0.9% 1000 ml BAG 1,000 ML IV SCH (14:54)
[2020-06-09] MEDS ORDERED: Senna TAB 8.6 mg TAB PO PRN (14:59)
[2020-06-09] MEDS ORDERED: Polyethylene Glycol 3350 17 GM PACKET PO PRN (14:59)
[2020-06-09] MEDS: Magnesium Hydroxide LIQ 30 ML UDC PO PRN ×2 (15:22→20:53)
[2020-06-09] MEDS ORDERED: Enoxaparin 30 MG/0.3 ML SYR SUBCUT SCH (19:00)
[2020-06-09 19:17] LABS: % Iron Saturation 14 % (15-55); Iron 36 ug/dL (50-212); Total Iron Binding Capacity 251 mcg/dL (250-450); Transferrin 179 mg/dL (203-362); Unsaturated Iron Binding < 236 ug/dL
[2020-06-09 19:39] LABS: Ferritin 161.9 ng/mL (11-307)
[2020-06-09 19:42] LABS: Folate > 20.00 ng/mL (>3.99)
[2020-06-09 19:43] LABS: Vitamin B12 > 1450 pg/mL (180-914)
[2020-06-10 05:30] LABS: ABS Eosinophils 0.4 10^3/ul (0-0.6); ABS Lymphocytes 1.1 10^3/ul (1.0-4.8); ABS Monocytes 0.4 10^3/ul (0-0.8); ABS Neutrophils 1.9 10^3/ul (1.5-7.7); Eosinophil % 10.3 %; Hematocrit 26 % (35-47); Hemoglobin 8.8 g/dL (12.0-16.0); Lymphocyte % 28.9 %; Mean Corpuscular HGB Conc 33 g/dL (31-36); Mean Corpuscular Hemoglobin 29 pg (27-31); Mean Corpuscular Volume 87 fL (80-97); Mean Platelet Volume 8.7 fL (7.4-10.4); Platelet Count 184 10^3/uL (150-450); Red Blood Count 3.03 10^6 /uL (3.70-4.87); Red Cell Distribution Width 13 % (10-15); White Blood Count 3.9 10^3/uL (3.5-10.8)
[2020-06-10 06:25] LABS: BUN/Creatinine Ratio 54.8 (8-20); Calcium 8.8 mg/dL (8.6-10.3); EGFR African American 77.6 (>60); EGFR Non-African American 64.1 (>60); Potassium 4.7 mmol/L (3.5-5.0)
[2020-06-10] MEDS: fentaNYL Patch Check Q Shift NOTE FOLLOW UP SCH (07:10)
[2020-06-10] MEDS: NS 0.9% 1000 ml BAG 1,000 ML IV SCH (07:26)
[2020-06-10 08:20] VITALS: BP 114/94
== END 2020-06-10 11:35 | disposition left against medical advice (07) | DRG 535 ==
LOC: ED 12:20 → SSU 13:40
PROVIDERS: ADMIT Internal Medicine; ATTEND Internal Medicine

== ENCOUNTER 2020-09-11 09:05 | Inpatient (IN) ==
[2020-09-11 12:50] LABS: Albumin 4.1 g/dL (3.2-5.2); Albumin/Globulin Ratio 1.3 (1-3); Calcium 10.1 mg/dL (8.6-10.3); EGFR African American 85.6 (>60); EGFR Non-African American 70.7 (>60); Globulin 3.1 g/dL (2-4); Total Bilirubin 0.7 mg/dL (0.2-1.0); Total Protein 7.2 g/dL (6.4-8.9)
[2020-09-11 12:52] LABS: ABS Eosinophils 0.1 10^3/ul (0-0.6); ABS Lymphocytes 0.5 10^3/ul (1.0-4.8); ABS Monocytes 0.4 10^3/ul (0-0.8); Eosinophil % 1.1 %; Hematocrit 36 % (35-47); Hemoglobin 11.8 g/dL (12.0-16.0); Lymphocyte % 8.6 %; Mean Corpuscular HGB Conc 33 g/dL (31-36); Mean Corpuscular Hemoglobin 28 pg (27-31); Mean Corpuscular Volume 85 fL (80-97); Mean Platelet Volume 9.6 fL (7.4-10.4); Platelet Count 236 10^3/uL (150-450); Red Blood Count 4.21 10^6 /uL (3.70-4.87); Red Cell Distribution Width 14 % (10-15)
[2020-09-11] MEDS ORDERED: NS 0.9% 1000 ml BAG 1,000 ML IV ONE (14:39)
[2020-09-11] MEDS ORDERED: HYDROcodone/ACETAMIN 5/325 mg TAB PO ONE (14:50)
[2020-09-11] MEDS ORDERED: hydrALAZINE 20 mg/ml 1 ML Vial IV IV SLOW PU ONE (15:21)
[2020-09-11 18:01] LABS: Urine Appearance Clear; Urine Bilirubin Negative (Negative); Urine Blood Negative (Negative); Urine Color Yellow; Urine Glucose Negative (Negative); Urine Ketones Negative (Negative); Urine Nitrite Negative (Negative); Urine Protein Negative (Negative); Urine Specific Gravity 1.011 (1.002-1.030); Urine Urobilinogen Negative (Negative)
[2020-09-11] MEDS: Heparin 5000 UNITS/ML 1 mL VIAL SUBCUT SCH (21:02)
[2020-09-12] MEDS: Heparin 5000 UNITS/ML 1 mL VIAL SUBCUT SCH ×3 (05:55→21:00)
[2020-09-12] MEDS: Aspirin EC 81 mg TAB.EC (enteric coated) PO SCH (08:39)
[2020-09-13] MEDS: Heparin 5000 UNITS/ML 1 mL VIAL SUBCUT SCH ×3 (05:14→21:15)
[2020-09-13] MEDS: Aspirin EC 81 mg TAB.EC (enteric coated) PO SCH (09:31)
[2020-09-13 10:02] LABS: ABS Eosinophils 0.2 10^3/ul (0-0.6); ABS Lymphocytes 0.7 10^3/ul (1.0-4.8); ABS Monocytes 0.4 10^3/ul (0-0.8); Eosinophil % 4.4 %; Hematocrit 29 % (35-47); Hemoglobin 9.8 g/dL (12.0-16.0); Lymphocyte % 12.8 %; Mean Corpuscular HGB Conc 34 g/dL (31-36); Mean Corpuscular Hemoglobin 28 pg (27-31); Mean Corpuscular Volume 84 fL (80-97); Mean Platelet Volume 8.6 fL (7.4-10.4); Platelet Count 237 10^3/uL (150-450); Red Blood Count 3.46 10^6 /uL (3.70-4.87); Red Cell Distribution Width 14 % (10-15); White Blood Count 5.4 10^3/uL (3.5-10.8)
[2020-09-13 10:12] LABS: C Reactive Protein 30.63 mg/L (<8.01)
[2020-09-13 15:48] LABS: Total Iron Binding Capacity 237 mcg/dL (250-450); Transferrin 169 mg/dL (203-362)
[2020-09-13 15:49] LABS: % Iron Saturation 8 % (15-55); Iron < 20 ug/dL (50-212); Unsaturated Iron Binding < 222 ug/dL
[2020-09-13 16:07] LABS: Ferritin 176.4 ng/mL (11-307)
[2020-09-13 16:11] LABS: Vitamin B12 > 1450 pg/mL (180-914)
[2020-09-13 20:05] LABS: Vitamin D Total 25(OH) 31.5 ng/mL (20-50)
[2020-09-14] MEDS: Heparin 5000 UNITS/ML 1 mL VIAL SUBCUT SCH ×2 (05:27→12:15)
[2020-09-14 06:19] LABS: ABS Eosinophils 0.5 10^3/ul (0-0.6); ABS Monocytes 0.4 10^3/ul (0-0.8); ABS Neutrophils 2.8 10^3/ul (1.5-7.7); Eosinophil % 10.1 %; Hematocrit 29 % (35-47); Hemoglobin 9.9 g/dL (12.0-16.0); Lymphocyte % 20.7 %; Mean Corpuscular HGB Conc 34 g/dL (31-36); Mean Corpuscular Hemoglobin 29 pg (27-31); Mean Corpuscular Volume 84 fL (80-97); Mean Platelet Volume 8.8 fL (7.4-10.4); Platelet Count 250 10^3/uL (150-450); Red Blood Count 3.42 10^6 /uL (3.70-4.87); Red Cell Distribution Width 14 % (10-15); White Blood Count 4.7 10^3/uL (3.5-10.8)
[2020-09-14 06:37] LABS: Calcium 9.1 mg/dL (8.6-10.3); EGFR Non-African American 92.6 (>60); Magnesium 1.6 mg/dL (1.9-2.7); Potassium 3.9 mmol/L (3.5-5.0)
[2020-09-14] MEDS: Aspirin EC 81 mg TAB.EC (enteric coated) PO SCH (08:04)
[2020-09-14] MEDS ORDERED: Magnesium Sulfate 2 gm BAG 2 GM/50 ML BAG IVPB ONE (09:39)
[2020-09-14 11:19] VITALS: BP 138/63
== END 2020-09-14 17:35 | disposition left against medical advice (07) | DRG 563 ==
LOC: MEDTELE 09:05 → ED 09:05 → MEDTELE 17:28
PROVIDERS: ADMIT Hospitalist; ATTEND Pediatrics

== ENCOUNTER 2021-10-11 12:19 | Inpatient (IN) ==
[2021-10-11 13:27] LABS: ABS Eosinophils 0.3 10^3/ul (0-0.6); ABS Lymphocytes 0.6 10^3/ul (1.0-4.8); ABS Monocytes 0.4 10^3/ul (0-0.8); ABS Neutrophils 3.8 10^3/ul (1.5-7.7); Eosinophil % 5.8 %; Hematocrit 28 % (35-47); Hemoglobin 9.4 g/dL (12.0-16.0); Mean Corpuscular HGB Conc 33 g/dL (31-36); Mean Corpuscular Hemoglobin 29 pg (27-31); Mean Corpuscular Volume 87 fL (80-97); Mean Platelet Volume 8.5 fL (7.4-10.4); Platelet Count 218 10^3/uL (150-450); Red Blood Count 3.28 10^6 /uL (3.70-4.87); Red Cell Distribution Width 14 % (10-15); White Blood Count 5.2 10^3/uL (3.5-10.8)
[2021-10-11 13:52] LABS: Albumin 3.6 g/dL (3.2-5.2); Albumin/Globulin Ratio 1.6 (1-3); C Reactive Protein 47.71 mg/L (<8.01); Globulin 2.3 g/dL (2-4); Potassium 4.5 mmol/L (3.5-5.0); Total Bilirubin 0.5 mg/dL (0.2-1.0); Total Protein 5.9 g/dL (6.4-8.9)
[2021-10-11] MEDS ORDERED: Lactated Ringers 1000 ml BAG 1,000 ML IV ONE (13:57)
[2021-10-11 15:47] LABS: Urine Appearance Clear; Urine Bilirubin Negative (Negative); Urine Blood Negative (Negative); Urine Color Yellow; Urine Glucose Negative (Negative); Urine Ketones Negative (Negative); Urine Nitrite Negative (Negative); Urine Protein Negative (Negative); Urine Urobilinogen Negative (Negative)
[2021-10-11] MEDS: NS 0.9% 1000 ml BAG 1,000 ML IV SCH (22:51)
[2021-10-11] MEDS: Heparin 5000 UNITS/ML 1 mL VIAL SUBCUT SCH (23:35)
[2021-10-12] MEDS: Heparin 5000 UNITS/ML 1 mL VIAL SUBCUT SCH ×3 (05:14→21:25)
[2021-10-12 05:48] LABS: ABS Eosinophils 0.3 10^3/ul (0-0.6); ABS Lymphocytes 0.6 10^3/ul (1.0-4.8); ABS Monocytes 0.4 10^3/ul (0-0.8); ABS Neutrophils 3.4 10^3/ul (1.5-7.7); Eosinophil % 6.8 %; Hematocrit 27 % (35-47); Lymphocyte % 13.8 %; Mean Corpuscular HGB Conc 34 g/dL (31-36); Mean Corpuscular Hemoglobin 29 pg (27-31); Mean Corpuscular Volume 86 fL (80-97); Mean Platelet Volume 9.2 fL (7.4-10.4); Platelet Count 223 10^3/uL (150-450); Red Blood Count 3.11 10^6 /uL (3.70-4.87); Red Cell Distribution Width 14 % (10-15); White Blood Count 4.7 10^3/uL (3.5-10.8)
[2021-10-12 06:13] LABS: Anion Gap 7 mmol/L (2-11); Blood Urea Nitrogen 44 mg/dL (6-24); CO2 Carbon Dioxide 26 mmol/L (22-32); Calcium 8.8 mg/dL (8.6-10.3); Chloride 106 mmol/L (101-111); Glucose 116 mg/dL (70-100); Potassium 4.2 mmol/L (3.5-5.0); Sodium 139 mmol/L (135-145); eGFR CKD-EPI 50.8 (>60)
[2021-10-12] MEDS: Aspirin EC 81 mg TAB.EC (enteric coated) PO SCH (08:22)
[2021-10-12] MEDS: Cholecalciferol (VIT D3) 1,000 unit TAB PO SCH (08:22)
[2021-10-12] MEDS: NS 0.9% 1000 ml BAG 1,000 ML IV SCH (14:35)
[2021-10-13 04:07] LABS: Total Iron Binding Capacity 252 mcg/dL (250-450); Transferrin 180 mg/dL (203-362)
[2021-10-13] MEDS: Heparin 5000 UNITS/ML 1 mL VIAL SUBCUT SCH ×3 (05:34→20:20)
[2021-10-13 06:23] LABS: ABS Eosinophils 0.3 10^3/ul (0-0.6); ABS Lymphocytes 0.9 10^3/ul (1.0-4.8); ABS Monocytes 0.4 10^3/ul (0-0.8); ABS Neutrophils 4.5 10^3/ul (1.5-7.7); Eosinophil % 4.7 %; Hematocrit 32 % (35-47); Hemoglobin 10.6 g/dL (12.0-16.0); Lymphocyte % 15.4 %; Mean Corpuscular HGB Conc 33 g/dL (31-36); Mean Corpuscular Hemoglobin 28 pg (27-31); Mean Corpuscular Volume 86 fL (80-97); Mean Platelet Volume 8.9 fL (7.4-10.4); Nucleated Red Blood Cells % 0.1; Platelet Count 262 10^3/uL (150-450); Red Blood Count 3.73 10^6 /uL (3.70-4.87); Red Cell Distribution Width 14 % (10-15); White Blood Count 6.1 10^3/uL (3.5-10.8)
[2021-10-13 06:40] LABS: C Reactive Protein 23.37 mg/L (<8.01); Calcium 9.4 mg/dL (8.6-10.3); eGFR CKD-EPI 68.3 (>60)
[2021-10-13] MEDS: Aspirin EC 81 mg TAB.EC (enteric coated) PO SCH (08:05)
[2021-10-13] MEDS: Cholecalciferol (VIT D3) 1,000 unit TAB PO SCH (08:05)
[2021-10-13 08:43] LABS: Ferritin 276.7 ng/mL (11-307)
[2021-10-13 08:44] LABS: % Iron Saturation 8 % (15-55); Iron < 20 ug/dL (50-212); Unsaturated Iron Binding 232 ug/dL
[2021-10-13 08:47] LABS: Folate > 20.00 ng/mL (5.90-24.80)
[2021-10-13 08:49] LABS: Vitamin B12 556 pg/mL (180-914)
[2021-10-13] MEDS ORDERED: Metoprolol Tartrate 5 mg VIAL 5 ml VIAL (1 mg/ml) IV ONE (14:05)
[2021-10-13] MEDS ORDERED: Metoprolol Tartrate 5 mg VIAL 5 ml VIAL (1 mg/ml) ONE (14:14)
[2021-10-13 14:16] LABS: Magnesium 1.8 mg/dL (1.9-2.7)
[2021-10-13] MEDS ORDERED: Magnesium Sulfate 2 gm BAG 2 GM/50 ML BAG IVPB ONE (14:54)
[2021-10-13] MEDS ORDERED: Digoxin IV 0.5 MG/2 ML AMP (0.25 MG/ML) IV SLOW PU ONE (15:27)
[2021-10-13] MEDS ORDERED: Haloperidol 5 mg/ml SDV IV/IM 5 MG/ML AMP IV SLOW PU PRN (15:50)
[2021-10-13] MEDS ORDERED: Haloperidol 5 mg/ml SDV IV/IM 5 MG/ML AMP IM PRN (15:52)
[2021-10-13] MEDS ORDERED: dilTIAZem 30 MG TAB PO ONE (18:35)
[2021-10-14] MEDS: Heparin 5000 UNITS/ML 1 mL VIAL SUBCUT SCH ×3 (05:24→20:59)
[2021-10-14] MEDS: Cholecalciferol (VIT D3) 1,000 unit TAB PO SCH (07:58)
[2021-10-14] MEDS: Aspirin EC 81 mg TAB.EC (enteric coated) PO SCH (07:59)
[2021-10-14] MEDS: Iron Sucrose 200 MG in NS 0.9% 100 ml BAG 100 ML IVPB SCH ×2 (21:00→21:22)
[2021-10-15] MEDS: Heparin 5000 UNITS/ML 1 mL VIAL SUBCUT SCH ×3 (05:48→20:06)
[2021-10-15] MEDS: Cholecalciferol (VIT D3) 1,000 unit TAB PO SCH (07:25)
[2021-10-15] MEDS: Aspirin EC 81 mg TAB.EC (enteric coated) PO SCH (07:25)
[2021-10-15] MEDS: Iron Sucrose 200 MG in NS 0.9% 100 ml BAG 100 ML IVPB SCH (09:46)
[2021-10-16] MEDS: Heparin 5000 UNITS/ML 1 mL VIAL SUBCUT SCH ×2 (05:11→14:07)
[2021-10-16] MEDS: Cholecalciferol (VIT D3) 1,000 unit TAB PO SCH (07:33)
[2021-10-16] MEDS: Aspirin EC 81 mg TAB.EC (enteric coated) PO SCH (07:33)
[2021-10-16] MEDS: Iron Sucrose 200 MG in NS 0.9% 100 ml BAG 100 ML IVPB SCH (07:36)
[2021-10-16 12:29] VITALS: BP 144/68
== END 2021-10-16 15:00 | disposition left against medical advice (07) | DRG 949 ==
LOC: EDHOLD 12:19 → ED 12:19 → OBSVTOIN 17:56 → INTOOBSV 17:56 → SUATTDRO 17:56 → MED 21:00 → MEDTELE 10-13 19:25 → UNDODISOB 10-16 15:00
PROVIDERS: ADMIT Hospitalist; ATTEND Internal Medicine

== ENCOUNTER 2022-03-24 04:39 | Inpatient (IN) ==
[2022-03-24] MEDS ORDERED: methylPREDNISolone SOD SUCC 125 mg 2 ML VIAL IV ONE (04:44)
[2022-03-24] MEDS ORDERED: Albuterol 2.5mg/3 ml (0.083%) NEB.SOLN INH ONE (04:44)
[2022-03-24 05:01] LABS: PCO2 Arterial 45 mmHg (35-45); PO2 Arterial 71 mmHg (80-100)
[2022-03-24 05:43] LABS: ABS Eosinophils 0.4 10^3/ul (0-0.6); ABS Lymphocytes 0.9 10^3/ul (1.0-4.8); ABS Monocytes 0.6 10^3/ul (0-0.8); ABS Neutrophils 8.1 10^3/ul (1.5-7.7); Eosinophil % 3.7 %; Hematocrit 29 % (35-47); Hemoglobin 9.5 g/dL (12.0-16.0); Mean Corpuscular HGB Conc 32 g/dL (31-36); Mean Corpuscular Hemoglobin 29 pg (27-31); Mean Corpuscular Volume 89 fL (80-97); Mean Platelet Volume 9.2 fL (7.4-10.4); Platelet Count 232 10^3/uL (150-450); Red Cell Distribution Width 15 % (10-15)
[2022-03-24] MEDS ORDERED: Furosemide 40 mg/4 ml IV VIAL IV ONE ×2 (05:50→12:47)
[2022-03-24 06:57] LABS: Albumin 3.7 g/dL (3.2-5.2); Albumin/Globulin Ratio 1.9 (1-3); Calcium 9.1 mg/dL (8.6-10.3); Potassium 4.6 mmol/L (3.5-5.0); Total Bilirubin 0.4 mg/dL (0.2-1.0); Total Protein 5.7 g/dL (6.4-8.9); eGFR CKD-EPI 45.5 (>60)
[2022-03-24 07:06] LABS: High Sensitivity Troponin 1 Hr 88 pg/mL (<15)
[2022-03-24 10:22] LABS: Magnesium 2.4 mg/dL (1.9-2.7)
[2022-03-24 11:04] LABS: C Reactive Protein 19.61 mg/L (<8.01)
[2022-03-24 11:53] LABS: Erythrocyte Sed Rate 27 mm/Hr (0-29)
[2022-03-24] MEDS ORDERED: Ferric Gluconate IV 125 MG in NS 0.9% 100 ml BAG 100 ML IVPB SCH (16:00)
[2022-03-24] MEDS: Aztreonam 1 GM in NS 0.9% 50 ML 50 ML IV SCH ×2 (16:23→21:40)
[2022-03-25] MEDS ORDERED: Haloperidol 5 mg/ml SDV IV/IM 5 MG/ML AMP IV SLOW PU ONE (01:29)
[2022-03-25] MEDS: Aztreonam 1 GM in NS 0.9% 50 ML 50 ML IV SCH ×3 (05:15→21:15)
[2022-03-25 06:37] LABS: Hematocrit 29 % (35-47); Hemoglobin 9.5 g/dL (12.0-16.0); Mean Corpuscular HGB Conc 33 g/dL (31-36); Mean Corpuscular Hemoglobin 29 pg (27-31); Mean Corpuscular Volume 87 fL (80-97); Mean Platelet Volume 9.8 fL (7.4-10.4); Platelet Count 247 10^3/uL (150-450); Red Blood Count 3.33 10^6 /uL (3.70-4.87); Red Cell Distribution Width 16 % (10-15); White Blood Count 14.7 10^3/uL (3.5-10.8)
[2022-03-25 06:48] LABS: Calcium 9.9 mg/dL (8.6-10.3); Magnesium 2.1 mg/dL (1.9-2.7); Potassium 3.9 mmol/L (3.5-5.0); eGFR CKD-EPI 61.9 (>60)
[2022-03-25] MEDS: Ferric Gluconate IV 250 MG in NS 0.9% 100 ml BAG 100 ML IVPB SCH (09:36)
[2022-03-25 10:56] LABS: Ferritin 398.9 ng/mL (11-307)
[2022-03-25] MEDS ORDERED: Furosemide 20 mg/2 ml IV VIAL IV SLOW PU ONE (14:32)
[2022-03-25] MEDS ORDERED: Furosemide 40 mg/4 ml IV VIAL IV SLOW PU ONE ×2 (14:34→16:51)
[2022-03-26] MEDS: Aztreonam 1 GM in NS 0.9% 50 ML 50 ML IV SCH ×3 (06:23→23:01)
[2022-03-26] MEDS ORDERED: Furosemide 40 mg/4 ml IV VIAL IV SLOW PU ONE ×2 (08:54→10:01)
[2022-03-26] MEDS: Ferric Gluconate IV 250 MG in NS 0.9% 100 ml BAG 100 ML IVPB SCH ×2 (09:12→09:16)
[2022-03-26 09:31] LABS: ABS Lymphocytes 0.8 10^3/ul (1.0-4.8); ABS Monocytes 0.7 10^3/ul (0-0.8); ABS Neutrophils 10.9 10^3/ul (1.5-7.7); Eosinophil % 0.2 %; Hematocrit 28 % (35-47); Hemoglobin 9.2 g/dL (12.0-16.0); Lymphocyte % 6.7 %; Mean Corpuscular HGB Conc 33 g/dL (31-36); Mean Corpuscular Hemoglobin 28 pg (27-31); Mean Corpuscular Volume 87 fL (80-97); Mean Platelet Volume 9.4 fL (7.4-10.4); Platelet Count 216 10^3/uL (150-450); Red Blood Count 3.24 10^6 /uL (3.70-4.87); Red Cell Distribution Width 15 % (10-15); White Blood Count 12.5 10^3/uL (3.5-10.8)
[2022-03-26 10:00] LABS: Potassium 3.5 mmol/L (3.5-5.0)
[2022-03-26 10:01] LABS: Calcium 9.6 mg/dL (8.6-10.3); eGFR CKD-EPI 68.3 (>60)
[2022-03-26] MEDS ORDERED: Metoprolol Tartrate 5 mg VIAL 5 ml VIAL (1 mg/ml) IV PRN (10:01)
[2022-03-26] MEDS ORDERED: Metoprolol Tartrate 5 mg VIAL 5 ml VIAL (1 mg/ml) IV ONE (10:02)
[2022-03-26] MEDS ORDERED: Digoxin IV 0.5 MG/2 ML AMP (0.25 MG/ML) IV SLOW PU ONE (14:03)
[2022-03-27] MEDS: Aztreonam 1 GM in NS 0.9% 50 ML 50 ML IV SCH ×3 (06:00→21:34)
[2022-03-27 06:31] LABS: ABS Lymphocytes 0.8 10^3/ul (1.0-4.8); ABS Monocytes 0.7 10^3/ul (0-0.8); ABS Neutrophils 9.1 10^3/ul (1.5-7.7); Eosinophil % 0.4 %; Hematocrit 29 % (35-47); Hemoglobin 9.4 g/dL (12.0-16.0); Lymphocyte % 7.4 %; Mean Corpuscular HGB Conc 33 g/dL (31-36); Mean Corpuscular Hemoglobin 29 pg (27-31); Mean Corpuscular Volume 88 fL (80-97); Mean Platelet Volume 9.6 fL (7.4-10.4); Platelet Count 234 10^3/uL (150-450); Red Blood Count 3.26 10^6 /uL (3.70-4.87); Red Cell Distribution Width 15 % (10-15); White Blood Count 10.6 10^3/uL (3.5-10.8)
[2022-03-27 06:50] LABS: Calcium 9.4 mg/dL (8.6-10.3); Potassium 3.4 mmol/L (3.5-5.0); eGFR CKD-EPI 61.1 (>60)
[2022-03-27] MEDS ORDERED: Furosemide 40 mg/4 ml IV VIAL IV ONE (09:29)
[2022-03-27] MEDS ORDERED: KCL 20 MEQ/100 ML IVPREMIX 20 MEQ/100 ML BAG IV ONE (13:10)
[2022-03-27] MEDS ORDERED: Furosemide 40 mg/4 ml IV VIAL IV SLOW PU ONE (17:19)
[2022-03-27 17:53] LABS: Magnesium 1.9 mg/dL (1.9-2.7)
[2022-03-28] MEDS: Aztreonam 1 GM in NS 0.9% 50 ML 50 ML IV SCH ×3 (04:55→22:35)
[2022-03-28 06:54] LABS: ABS Eosinophils 0.3 10^3/ul (0-0.6); ABS Lymphocytes 0.7 10^3/ul (1.0-4.8); ABS Monocytes 0.5 10^3/ul (0-0.8); ABS Neutrophils 6.2 10^3/ul (1.5-7.7); Eosinophil % 3.3 %; Hematocrit 27 % (35-47); Hemoglobin 9.1 g/dL (12.0-16.0); Lymphocyte % 8.5 %; Mean Corpuscular HGB Conc 34 g/dL (31-36); Mean Corpuscular Hemoglobin 29 pg (27-31); Mean Corpuscular Volume 88 fL (80-97); Mean Platelet Volume 9.2 fL (7.4-10.4); Platelet Count 209 10^3/uL (150-450); Red Blood Count 3.09 10^6 /uL (3.70-4.87); Red Cell Distribution Width 15 % (10-15); White Blood Count 7.7 10^3/uL (3.5-10.8)
[2022-03-28 07:39] LABS: Calcium 9.2 mg/dL (8.6-10.3); Magnesium 1.8 mg/dL (1.9-2.7); Potassium 3.7 mmol/L (3.5-5.0); eGFR CKD-EPI 59.5 (>60)
[2022-03-28] MEDS ORDERED: Magnesium Sulfate IV 1GM/100ML 1 GM/100 ML BAG IV ONE (08:04)
[2022-03-28] MEDS ORDERED: Furosemide 40 mg/4 ml IV VIAL IV SCH (09:00)
[2022-03-28] MEDS ORDERED: Potassium Chlor 20 meq TAB.ER PO ONE (15:29)
[2022-03-29 01:16] LABS: Urine Appearance Cloudy; Urine Bilirubin Negative (Negative); Urine Blood 2+ (Negative); Urine Color Yellow; Urine Glucose Negative (Negative); Urine Ketones Negative (Negative); Urine Nitrite Negative (Negative); Urine Protein Negative (Negative); Urine Specific Gravity 1.014 (1.002-1.030); Urine Urobilinogen Negative (Negative)
[2022-03-29 01:36] LABS: Urine Bacteria 1+ (Absent); Urine Red Blood Cell Trace(0-2/hpf) (Absent); Urine Squamous Epithelial Cell Present (Absent); Urine White Blood Cell Trace(0-5/hpf) (Absent)
[2022-03-29] MEDS: Aztreonam 1 GM in NS 0.9% 50 ML 50 ML IV SCH (05:59)
[2022-03-29 09:46] LABS: Potassium 3.6 mmol/L (3.5-5.0); eGFR CKD-EPI 69.3 (>60)
[2022-03-29] MEDS ORDERED: Potassium Chlor 20 meq TAB.ER PO ONE (11:42)
[2022-03-29 11:44] VITALS: BP 131/57
== END 2022-03-29 16:20 | disposition home health service (06) | DRG 291 ==
LOC: EDHOLD 04:39 → ED 04:39 → EDHOLD 12:09 → MEDTELE 12:46 → SUATTDRO 03-25 19:46
PROVIDERS: ADMIT Internal Medicine; ATTEND Hospitalist